=== PATIENT | male | born 1945 | race Caucasian/White ===

== ENCOUNTER 2022-03-05 07:34 | Outpatient (REF) | payer MEDICARE, SELFPAY ==
[2022-03-05 08:01] LABS: MANUAL DIFF FLAG NO
[2022-03-05 08:38] LABS: Basophils Percent Auto 0.6 % (0-2); Eosinophils Absolute Auto 0.1 X10*3/uL (0.0-0.4); Hematocrit 41.7 % (42.0-52.0); Hemoglobin 13.7 g/dl (14.0-18.0); Imm Gran Abs Auto 0.02 X10*3/uL (0.00-0.03); Imm Gran Pct Auto 0.4 % (0.0-0.4); Lymphocytes Absolute Auto 1.1 X10*3/uL (1.2-4.9); Lymphocytes Percent Auto 21.8 % (20-40); Mean Corpuscular HGB Conc 32.9 g/dl (31.0-36.0); Mean Corpuscular Hemoglobin 28.9 pg (27.0-33.0); Mean Platelet Volume 10.3 fL (9.4-12.4); Monocytes Absolute Auto 0.4 X10*3/uL (0.1-1.2); Monocytes Percent Auto 8.2 % (2-11); Neutrophils Absolute Auto 3.5 x10*3/uL (2.0-8.3); Platelet Count 228 X10*3/uL (160-400); Red Blood Count 4.74 X10*6/uL (4.60-5.80); Red Cell Distribution Width 12.8 % (11.0-16.0); White Blood Count 5.1 X10*3/uL (4.8-10.8)
[2022-03-05 09:05] LABS: Estimated Average Glucose 114 mg/dL; Hemoglobin A1c % 5.6 %
[2022-03-05 09:10] LABS: Alanine Aminotransferase 16 U/L (0-40); Albumin Level 4.1 g/dL (3.5-5.0); Alkaline Phosphatase 58 U/L (39-117); Anion Gap 9 (12-20); Aspartate Amino Transferase 20 U/L (5-37); Bilirubin Total 0.4 mg/dL (0.0-1.0); Blood Urea Nitrogen 22 mg/dL (9-16); Calcium 9.2 mg/dL (8.4-10.2); Carbon Dioxide 30 mmol/L (22-29); Chloride 104 mmol/L (96-108); Cholesterol 191 mg/dL; Estimated Glomerular Filt Rate > 60; Glucose Random 104 mg/dL (60-115); HDL Cholesterol 41 mg/dL; LDL Cholesterol Calculated 137 mg/dl; Potassium 4.4 mmol/L (3.3-5.1); Sodium 139 mmol/L (135-145); Total Protein 6.9 g/dL (6.5-8.0); Triglycerides 66 mg/dL
[2022-03-05 09:29] LABS: Free T4 (Free Thyroxine) 1.18 ng/dL (0.71-1.85); Thyroid Stimulating Hormone 0.86 uIU/mL (0.32-4.0)
[2022-03-07 06:35] LABS: Vitamin B12 239 pg/mL (200-900)
== END 2022-03-05 07:35 | disposition home or self-care (01) ==
LOC: HO.LAB 07:34
PROVIDERS: PCP Internal Medicine; Visit Provider Internal Medicine
DX: K21.9 Gastro-esophageal reflux disease without esophagitis (principal); E78.00 Pure hypercholesterolemia, unspecified; R73.02 Impaired glucose tolerance (oral)
CPT/HCPCS: 36415; 80053; 80061; 82607; 82746; 83036; 84439; 84443; 85025

== ENCOUNTER 2023-06-26 08:45 | Outpatient (REF) | payer MEDICARE, SELFPAY ==
[2023-06-26 09:04] LABS: MANUAL DIFF FLAG NO
[2023-06-26 09:46] LABS: Basophils Percent Auto 0.8 % (0-2); Eosinophils Percent Auto 0.8 % (0-4); Hemoglobin 14.7 g/dl (14.0-18.0); Imm Gran Abs Auto 0.01 X10*3/uL (0.00-0.03); Imm Gran Pct Auto 0.2 % (0.0-0.4); Lymphocytes Absolute Auto 1.1 X10*3/uL (1.2-4.9); Lymphocytes Percent Auto 22.3 % (20-40); Mean Corpuscular HGB Conc 33.4 g/dl (31.0-36.0); Mean Corpuscular Volume 86.8 fL (80.0-98.0); Mean Platelet Volume 10.2 fL (9.4-12.4); Monocytes Absolute Auto 0.4 X10*3/uL (0.1-1.2); Monocytes Percent Auto 7.6 % (2-11); Neutrophils Absolute Auto 3.5 x10*3/uL (2.0-8.3); Neutrophils Percent Auto 68.3 % (45-73); Platelet Count 230 X10*3/uL (160-400); Red Blood Count 5.07 X10*6/uL (4.60-5.80); Red Cell Distribution Width 12.4 % (11.0-16.0); White Blood Count 5.1 X10*3/uL (4.8-10.8)
[2023-06-26 09:59] LABS: Estimated Average Glucose 105 mg/dL; Hemoglobin A1c % 5.3 % (<6.0)
[2023-06-26 10:54] LABS: Folate 11.5 ng/mL (> or = 4.0); Vitamin B12 317 pg/mL (200-900)
[2023-06-26 11:44] LABS: Alanine Aminotransferase 12 U/L (0-40); Albumin Level 4.2 g/dL (3.5-5.0); Alkaline Phosphatase 50 U/L (39-117); Anion Gap 11 (12-20); Aspartate Amino Transferase 16 U/L (5-37); Bilirubin Total 0.6 mg/dL (0.0-1.0); Blood Urea Nitrogen 18 mg/dL (9-16); Calcium 9.6 mg/dL (8.4-10.2); Carbon Dioxide 28 mmol/L (22-29); Chloride 105 mmol/L (96-108); Cholesterol 211 mg/dL (<200); Estimated Glomerular Filt Rate > 60; Glucose Random 102 mg/dL (60-115); HDL Cholesterol 41 mg/dL (>40); LDL Cholesterol Calculated 152 mg/dL (<100); Potassium 4.3 mmol/L (3.3-5.1); Sodium 140 mmol/L (135-145); Total Protein 6.9 g/dL (6.5-8.0); Triglycerides 92 mg/dL (<150)
[2023-06-26 12:01] LABS: Free T4 (Free Thyroxine) 1.07 ng/dL (0.71-1.85); Thyroid Stimulating Hormone 0.94 uIU/mL (0.32-4.0)
== END 2023-06-26 08:46 | disposition home or self-care (01) ==
LOC: HO.LAB 08:45
PROVIDERS: PCP Internal Medicine; Visit Provider Internal Medicine
DX: R73.02 Impaired glucose tolerance (oral) (principal); E78.00 Pure hypercholesterolemia, unspecified
CPT/HCPCS: 36415; 80053; 80061; 82607; 82746; 83036; 84439; 84443; 85025

== ENCOUNTER 2023-06-30 10:52 | Outpatient (AMB) | payer MEDICARE, SELFPAY ==
--- NOTE | 2023-06-30 10:54 | A.OFFPC_ITS ---
Vital Signs 06/30/23 10:55 Height 5 ft 10 in Weight 179 lb 2 oz BMI 25.7 BP 142/86 H Blood Pressure Location Lt brachial Position Sitting Respiration 16 Pulse 75 Pulse Source Pulse Oximeter Pulse Oximetry (%) 97 Oxygen Delivery Method Room Air Intake Visit Reasons: BP elevated, IGT, Cholesterol/ear flush Intake Note: Pt is here for elevated BP, IGT, Cholesterol and ear flush. 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 Accompanied by: Self / Same As Patient Allergies No Known Allergies Allergy (Verified 06/30/23 11:02) Tobacco use date assessed: 06/30/23 Fall risk assessment: No Falls in past year Last assessed Fall Risk: 06/30/23 Dental Screening Dental Screen Date: 06/30/23 Did you have a dental visit in the last 12 months?: Yes Did you have a dental problem in the last 6 months where you did not have access to dental care?: No Was dental information given to patient?: Patient has dentist HPI BP elevated, IGT, Cholesterol/ear flush HPI Details 77-year-old male with impaired glucose t olerance hypercholesterolemia GERD coming in for follow-up. Last seen in February for annual well visit noted to have an elevated blood pressure patient is here for follow-up [facility] Medical History (Updated 06/30/23 @ 11:35 by Kentrell Park MD) Blood pressure elevated without history of HTN Vitamin D deficiency Hypercholesterolemia Skin cancer GERD (gastroesophageal reflux disease) Surgical History History of retinal detachment Status post surgical removal of malignant neoplasm of skin History of cataract surgery Family History (Updated 03/10/23 @ 09:12 by MARK Garcia) Father Skin cancer Mother No problems noted. Son No problems noted. Daughter No problems noted. Other Mental health disorder Social History (Updated 03/10/23 @ 09:25 by Kentrell Park MD) Housing: House Alcohol intake: current Alcohol intake frequency: holidays/special occasions only Patient Tobacco Use Status: Former Tobacco user Years Smoked: 1976 quit e-Cigarette/Vaping Use: Never Used Current occupational status: retired Cognitive needs: No Hearing needs: No Vision needs: Yes Questionnaire Thrive Questionnaire Date Thrive assessed: 03/10/23 JAMAL-7 AMB Questionnaire JAMAL-7 Date JAMAL - 7 assessed: 03/10/23 Source: Developed by Drs. Derrick Dutton, Joanie Mcgowan, Kailash Tran and colleagues, with an educational artemio from [employer]. Physical exam (Primary Care) Vital Signs: Last Vital Signs Pulse 75 06/30/23 10:55 Resp 16 06/30/23 10:55 BP 142/86 H 06/30/23 10:55 Pulse Ox 97 06/30/23 10:55 Oxygen Delivery Method Room Air 06/30/23 10:55 BMI result Body Mass Index 25.7 Tobacco/Smoking Status: Tobacco use Status Tobacco use date assessed 06/30/23 06/30/23 11:03 Patient Tobacco Use Status Former Tobacco user 06/30/23 10:54 e-Cigarette/Vaping Use Never Used 06/30/23 11:03 Thrive Assessment: Date of Thrive Assessment Date Thrive assessed 03/10/23 06/30/23 10:54 Const General: alert; No acute distress Eyes Conjunctivae: conjunctivae normal Resp Auscultation: clear to auscultation bilaterally Cardio Rate: regular rate Rhythm: regular rhythm GI Inspection: Yes normal to inspection Extrem General: Yes normal to inspection and No edema Assessment and Plan Assessment & Plan (1) Hypertension: Code(s): I10 - Essential (primary) hypertension Plan: Low-salt diet. decline med for now advised to continue with monitoring (2) Hypercholesterolemia: Code(s): E78.00 - Pure hypercholesterolemia, unspecified Plan: Avoid fried foods, chicken skin, eggs, butter margarine, pastries and meat. Be it pork or beef they have a lot of cholesterol LDL goal of less than 130 and triglyceride of less than 150 decline med for now retest in 6 months (3) GERD (gastroesophageal reflux disease): Code(s): K21.9 - Gastro-esophageal reflux disease without esophagitis Qualifiers: Esophagitis presence: without esophagitis Qualified Code(s): K21.9 - Gastro-esophageal reflux disease without esophagitis Plan: Avoid the foods that causes that usually spicy foods, tomato products, juices, coffee, soda and foods that your sensitive to. After eating do not lie down, allow 3-4 hours before in lie down. And keep the head of bed above 30 degrees to avoid the acid from going up. (4) Impaired glucose tolerance: Code(s): R73.02 - Impaired glucose tolerance (oral) Plan: Decrease the amount of carbohydrate intake, pasta, bread, rice and potatoes are all sugar and that is aside from all the sweet stuff, remember that fruits are good but they are Sweet also. (5) Impacted cerumen of both ears: Code(s): H61.23 - Impacted cerumen, bilateral Plan: not fully blocking - will hold irrigaiton (6) Shoulder pain, left: Code(s): M25.512 - Pain in left shoulder Plan: decline Physical therapy or referral to ortho Orders: Orders Comprehensive Met. Panel 6 Months E78.00 - Pure hypercholesterolemia, unspecified Lipid Panel 6 Months E78.00 - Pure hypercholesterolemia, unspecified Hemoglobin A1c 6 Months R73.02 - Impaired glucose tolerance (oral) Coding Level of Care Code Est Pt Level 4 (13739) Diagnoses Hypertension I10 Hypercholesterolemia E78.00 Gastroesophageal reflux disease without esophagitis K21.9 Esophagitis presence: without esophagitis Impaired glucose tolerance R73.02 Impacted cerumen of both ears H61.23 Shoulder pain, left M25.512
[2023-06-30 10:55] VITALS: BP 142/86; PULSE 75; RESP 16; O2SAT 97; BMI 25.7
== END 2023-06-30 11:43 | disposition home or self-care (01) ==
PROVIDERS: Visit Provider Internal Medicine
DX: I10 Essential (primary) hypertension (principal); E78.00 Pure hypercholesterolemia, unspecified; K21.9 Gastro-esophageal reflux disease without esophagitis; R73.02 Impaired glucose tolerance (oral); H61.23 Impacted cerumen, bilateral; M25.512 Pain in left shoulder
CPT/HCPCS: 99214

== ENCOUNTER 2024-01-01 08:12 | Outpatient (REF) | payer MEDICARE, SELFPAY ==
[2024-01-01 08:39] LABS: Estimated Average Glucose 105 mg/dL; Hemoglobin A1c % 5.3 % (<6.0)
[2024-01-01 09:02] LABS: Alanine Aminotransferase 12 U/L (0-40); Albumin Level 3.9 g/dL (3.5-5.0); Alkaline Phosphatase 53 U/L (39-117); Anion Gap 11 (12-20); Aspartate Amino Transferase 17 U/L (5-37); Bilirubin Total 0.5 mg/dL (0.0-1.0); Blood Urea Nitrogen 18 mg/dL (9-16); Calcium 9.3 mg/dL (8.4-10.2); Carbon Dioxide 28 mmol/L (22-29); Chloride 107 mmol/L (96-108); Cholesterol 173 mg/dL (<200); Estimated Glomerular Filt Rate > 60; Glucose Random 99 mg/dL (60-115); HDL Cholesterol 34 mg/dL (>40); LDL Cholesterol Calculated 123 mg/dL (<100); Potassium 4.3 mmol/L (3.3-5.1); Sodium 142 mmol/L (135-145); Total Protein 6.8 g/dL (6.5-8.0); Triglycerides 80 mg/dL (<150)
== END 2024-01-01 08:13 | disposition home or self-care (01) ==
LOC: HO.LAB 08:12
PROVIDERS: PCP Internal Medicine; Visit Provider Internal Medicine
DX: E78.00 Pure hypercholesterolemia, unspecified (principal); R73.02 Impaired glucose tolerance (oral)
CPT/HCPCS: 36415; 80053; 80061; 83036

== ENCOUNTER 2024-01-02 09:46 | Outpatient (AMB) | payer MEDICARE, SELFPAY ==
[2024-01-02 09:47] VITALS: BP 136/68; PULSE 66; O2SAT 99; BMI 25.1
--- NOTE | 2024-01-02 09:47 | A.OFFPC_ITS ---
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 Allergies No Known Allergies Allergy (Verified 01/02/24 09:47) Medication List - Last Reconciled 01/02/24 by Kentrell Park MD clotrimazole 1% 1 appl topical BID 4 weeks miconazole nitrate 2% (Zeasorb AF) 1 appl topical BID omeprazole 20 mg PO DAILY sildenafil 50 mg PO DAILY PRN Tobacco use date assessed: 01/02/24 Fall risk assessment: No Falls in past year Last assessed Fall Risk: 01/02/24 Dental Screening Dental Screen Date: 01/02/24 HPI L shoulder pain , HTN , Cholesterol HPI Details [age] year old male with hypertension hypercholesterolemia GERD impaired glucose tolerance and left shoulder pain last seen in June 2023 referred to orthopedics. Patient's colonoscopy is due this year. [facility] Medical History (Updated 01/02/24 @ 10:13 by Kentrell Park MD) Blood pressure elevated without history of HTN Vitamin D deficiency Hypercholesterolemia Skin cancer GERD (gastroesophageal reflux disease) Surgical History History of retinal detachment Status post surgical removal of malignant neoplasm of skin History of cataract surgery Family History (Updated 03/10/23 @ 09:12 by MARK Garcia) Father Skin cancer Mother No problems noted. Son No problems noted. Daughter No problems noted. Other Mental health disorder Social History (Updated 03/10/23 @ 09:25 by Kentrell Park MD) Housing: House Alcohol intake: current Alcohol intake frequency: holidays/special occasions only Patient Tobacco Use Status: Former Tobacco user Years Smoked: 1977 quit e-Cigarette/Vaping Use: Never Used Current occupational status: retired Cognitive needs: No Hearing needs: No Vision needs: Yes Questionnaire Thrive Questionnaire Date Thrive assessed: 01/02/24 I am a: Patient What is your living situation today?: I have a steady place to live Within the past 12 months, did the food you bought not last and you didn't have the money to get more?: Never true Within the past 12 months, did you worry whether your food would run out before you got money to buy more?: Never true Do you have trouble paying for medicines?: No Do you have trouble getting transportation to medical appointments?: No Do you have trouble paying your heating and electricity bill?: No Do you have trouble taking care of your child, family member or friend?: No Do you have trouble with day-to-day activities such as bathing, preparing meals, shopping, managing finances, etc.?: No Are you currently unemployed and looking for a job?: No Are you interested in more education?: No Please select the resources that you would like help with: None THRIVE Score: 0 AUDIT C Alcohol Use Questionnaire (AUDIT-C) 1. How often do you have a drink containing alcohol?: Never Total Score: 0 JAMAL-7 AMB Questionnaire JAMAL-7 Date JAMAL - 7 assessed: 01/02/24 Source: Developed by Drs. Derrick Dutton, Joanie Mcgowan, Kailash Tran and colleagues, with an educational artemio from [employer]. Physical exam (Primary Care) Vital Signs: Last Vital Signs Pulse 66 01/02/24 09:47 BP 136/68 01/02/24 09:47 Pulse Ox 99 01/02/24 09:47 Oxygen Delivery Method Room Air 01/02/24 09:47 BMI result Body Mass Index 25.1 Tobacco/Smoking Status: Tobacco use Status Tobacco use date assessed 01/02/24 01/02/24 09:49 Patient Tobacco Use Status Former Tobacco user 01/02/24 09:49 e-Cigarette/Vaping Use Never Used 01/02/24 09:49 Thrive Assessment: Date of Thrive Assessment Date Thrive assessed 01/02/24 01/02/24 09:49 Const General: alert; No acute distress Eyes Conjunctivae: conjunctivae normal Resp Auscultation: clear to auscultation bilaterally Cardio Rate: regular rate Rhythm: regular rhythm GI Inspection: Yes normal to inspection Extrem General: Yes normal to inspection and No edema Immunizations tetanus-diphtheria toxoids-Td 2 Lf unit-2 Lf unit/0.5 mL IM suspension Performing Provider: Kentrell Park MD Performing Location: [facility] Administered by: MARK Panchal on 01/02/24 10:20 Dose Route Admin Location Dispensed Lot Number Expiration Date NDC [employer] 0.5 mL IM Left Deltoid 0.5 mL [id number] 11/25/24 [id number] [employer] VIS Given Date VIS Provided VIS Publication Date 01/02/24 Single Vaccine 21 Eligibility Eligibility Date Funding Source Not [facility] Eligible 01/02/24 State funds Assessment and Plan Assessment & Plan (1) GERD (gastroesophageal reflux disease): Code(s): K21.9 - Gastro-esophageal reflux disease without esophagitis Qualifiers: Esophagitis presence: without esophagitis Qualified Code(s): K21.9 - Gastro-esophageal reflux disease without esophagitis Plan: Avoid the foods that causes that usually spicy foods, tomato products, juices, coffee, soda and foods that your sensitive to. After eating do not lie down, allow 3-4 hours before in lie down. And keep the head of bed above 30 degrees to avoid the acid from going up. (2) Hypercholesterolemia: Code(s): E78.00 - Pure hypercholesterolemia, unspecified Plan: Avoid fried foods, chicken skin, eggs, butter margarine, pastries and meat. Be it pork or beef they have a lot of cholesterol LDL goal of less than 130 and triglyceride of less than 150. (3) Impaired glucose tolerance: Code(s): R73.02 - Impaired glucose tolerance (oral) Plan: Decrease the amount of carbohydrate intake, pasta, bread, rice and potatoes are all sugar and that is aside from all the sweet stuff, remember that fruits are good but they are Sweet also. (4) Hypertension: Code(s): I10 - Essential (primary) hypertension Plan: Blood pressure is controlled without any medication (5) Colon cancer screening: Code(s): Z12.11 - Encounter for screening for malignant neoplasm of colon Plan: Reminded about colonoscopy. But declined for now Orders: Orders Td State Immunization Today Z23 - Encounter for immunization Coding Level of Care Code Est Pt Level 4 (24466) Diagnoses Gastroesophageal reflux disease without esophagitis K21.9 Esophagitis presence: without esophagitis Hypercholesterolemia E78.00 Impaired glucose tolerance R73.02 Hypertension I10 Colon cancer screening Z12.11
== END 2024-01-02 10:37 | disposition home or self-care (01) ==
PROVIDERS: PCP Internal Medicine; Visit Provider Internal Medicine
DX: K21.9 Gastro-esophageal reflux disease without esophagitis (principal); E78.00 Pure hypercholesterolemia, unspecified; R73.02 Impaired glucose tolerance (oral); I10 Essential (primary) hypertension; Z12.11 Encounter for screening for malignant neoplasm of colon; Z23 Encounter for immunization
CPT/HCPCS: 90471; 90714; 99214

== ENCOUNTER 2024-03-29 13:11 | Outpatient (AMB) | payer MEDICARE, SELFPAY ==
[2024-03-29 13:13] VITALS: BP 138/60; PULSE 65; O2SAT 98; BMI 24.4
--- NOTE | 2024-03-29 13:13 | MHC.PC.OV ---
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 Patient is due for colonoscopy. R shoulder pain 1 week- took NSAID, has been shop vac. on the floor [facility] Medical History (Updated 03/29/24 @ 13:44 by Kentrell Park MD) Blood pressure elevated without history of HTN Vitamin D deficiency Hypercholesterolemia Skin cancer GERD (gastroesophageal reflux disease) Surgical History History of retinal detachment Status post surgical removal of malignant neoplasm of skin History of cataract surgery Family History (Updated 03/10/23 @ 09:12 by MRAK Garcia) Father Skin cancer Mother No problems noted. Son No problems noted. Daughter No problems noted. Other Mental health disorder Social History (Updated 03/10/23 @ 09:25 by Kentrell Park MD) Housing: House Alcohol intake: current Alcohol intake frequency: holidays/special occasions only Patient Tobacco Use Status: Former Tobacco user Years Smoked: 1976 quit e-Cigarette/Vaping Use: Never Used Current occupational status: retired Cognitive needs: No Hearing needs: No Vision needs: Yes Questionnaire Thrive Questionnaire Date Thrive assessed: 01/02/24 I am a: Patient What is your living situation today?: I have a steady place to live Within the past 12 months, did the food you bought not last and you didn't have the money to get more?: Never true Within the past 12 months, did you worry whether your food would run out before you got money to buy more?: Never true Do you have trouble paying for medicines?: No Do you have trouble getting transportation to medical appointments?: No Do you have trouble paying your heating and electricity bill?: No Do you have trouble taking care of your child, family member or friend?: No Do you have trouble with day-to-day activities such as bathing, preparing meals, shopping, managing finances, etc.?: No Are you currently unemployed and looking for a job?: No Are you interested in more education?: No Please select the resources that you would like help with: None THRIVE Score: 0 AUDIT C Alcohol Use Questionnaire (AUDIT-C) 1. How often do you have a drink containing alcohol?: Never 2. How many drinks containing alcohol do you have on a typical day when you are drinking?: 1 or 2 (0) 3. How often do you have six or more drinks on one occasion?: Never Total Score: 0 JAMAL-7 AMB Questionnaire JAMAL-7 Date JAMAL - 7 assessed: 01/02/24 Source: Developed by Drs. Derrick Dutton, Joanie Mcgowan, Kailash Tran and colleagues, with an educational artemio from [employer]. Physical exam (Primary Care) Vital Signs: Last Vital Signs Pulse 65 03/29/24 13:13 BP 138/60 03/29/24 13:13 Pulse Ox 98 03/29/24 13:13 Oxygen Delivery Method Room Air 03/29/24 13:13 BMI result Body Mass Index 24.4 Tobacco/Smoking Status: Tobacco use Status Tobacco use date assessed 03/29/24 03/29/24 13:14 Patient Tobacco Use Status Former Tobacco user 03/29/24 13:14 e-Cigarette/Vaping Use Never Used 03/29/24 13:14 Thrive Assessment: Date of Thrive Assessment Date Thrive assessed 01/02/24 03/29/24 13:14 Const General: alert; No acute distress Eyes Conjunctivae: conjunctivae normal Resp Auscultation: clear to auscultation bilaterally Cardio Rate: regular rate Rhythm: regular rhythm GI Inspection: Yes normal to inspection Skin Other: Right arm no swelling no redness limitation of elevation up to 110 degrees with mild tenderness on the bicipital muscle Extrem General: Yes normal to inspection and No edema Assessment and Plan Assessment & Plan (1) Colon cancer screening: Code(s): Z12.11 - Encounter for screening for malignant neoplasm of colon Plan: reminded about colontest but patient not ready (2) Right shoulder pain: Code(s): M25.511 - Pain in right shoulder Plan: Discussed about having physical therapy and heat for this problem. Orders: Orders PT Evaluation and Treatment Today M25.511 - Pain in right shoulder Coding Level of Care Code Est Pt Level 3 (97765) Diagnoses Colon cancer screening Z12.11 Right shoulder pain M25.511
== END 2024-03-29 13:49 | disposition home or self-care (01) ==
PROVIDERS: PCP Internal Medicine; Visit Provider Internal Medicine
DX: Z12.11 Encounter for screening for malignant neoplasm of colon (principal); M25.511 Pain in right shoulder
CPT/HCPCS: 99213

== ENCOUNTER 2024-05-17 10:00 | Outpatient (RCR) | payer MEDICARE, SELFPAY ==
--- NOTE | 2024-04-26 12:25 | MHC.PT.EP ---
[facility] [place] Office [place] Office [place] Office [address] Letty Marcano [address] [phone] F: [phone] F: [phone] F: [phone] F: [phone] Physical Therapy Plan of Care Date of Evaluation: 04/26/24 Date of Surgery: Diagnosis: RIGHT shoulder pain (MD Dx) RIGHT upper trapezius strain, mild ACJ involvement (PT Dx) Assessment: Patient is a pleasant 78 y.o. male who is referred to PT by Dr. Kentrell Park MD with Dx of RIGHT shoulder pain. PT diagnosis is RIGHT upper trapezius strain, mild ACJ involvement. He presents with poor posture contributing to symptoms. Overall his symptoms are resolving, but would benefit from strengthening. Patient impairments include pain, postural imbalances, weakness in shoulder girdle. Patient current functional limitations are sleeping, reaching overhead, behind back, wash hair. Patient will benefit from skilled PT to address aforementioned impairments and functional limitations to meet established goals. Frequency and Duration: The patient will be seen 1x/week for 4 weeks Short Term Goals: 2 weeks Patient demonstrates consistency and independence with HEP to self manage symptoms. Residential Goals: 4 weeks Patient presents with increased RIGHT shoulder abduction strength 5/5 to be able to reach to high shelf without sxs. Patient presents with increased RIGHT shoulder flexion 5/5 to be able to sleep without discomfort. Treatment Plan: Modalities to reduce pain, spasms and effusion. Manual therapy to restore motion and function. Therapeutic exercise to improve strength and flexibility. Neuromuscular re-education for posture and balance. Therapeutic activities to return to functional activities of daily living. Electronically signed by: Cleo Rodriguez, PT, DPT Please sign and return to therapist. Thank you for your referral.
--- NOTE | 2024-07-10 11:54 | MHC.PT.DC ---
[facility] [place] Office [place] Office [place] Office [address] Letty Marcano [address] [phone] F: [phone] F: [phone] F: [phone] F: [phone] Physical Therapy Discharge Report Diagnosis: RIGHT shoulder pain (MD Dx) RIGHT upper trapezius strain, mild ACJ involvement (PT Dx) Date of Surgery: Date of Evaluation: 04/26/24 Date of Discharge: 07/10/24 Treatments to Date: 2 Cancellations to Date: 1 No Shows to Date: 0 Discharge Status: Improved Function Independent with HEP Discharge Summary: Kevin was last seen in PT on 05/17/24 and the assessment reads, Kevin presents with poor seated shoulder girdle and cervical spine posture, forward head/neck and rounded shoulders. Re-educated on working on posture and utilizing exercises to reduce impingement symptoms in his shoulder. He needs cues and demonstration to recall a couple exercises with proper form and to perform with control. He reports no pain to end session. He ceased attending PT on his own accord and is therefore discharged from PT. Electronically signed by: Cleo Rodriguez, PT, DPT Please sign and return to therapist. Thank you for your referral.
== END 2024-07-10 11:55 | disposition home or self-care (01) ==
LOC: HO.PT 10:00
PROVIDERS: PCP Internal Medicine; Visit Provider Internal Medicine
DX: M25.511 Pain in right shoulder (principal)
CPT/HCPCS: 97110; 97140; 97161

== ENCOUNTER 2024-07-04 11:17 | Outpatient (AMB) | payer MEDICARE, SELFPAY ==
[2024-07-04 11:18] VITALS: BP 138/62; PULSE 68; O2SAT 97; BMI 25.1
--- NOTE | 2024-07-04 11:19 | AM.OFFVISMDC ---
Intake Vital Signs 07/04/24 11:18 Height 5 ft 10 in Weight 175 lb BMI 25.1 BP 138/62 Blood Pressure Location Lt brachial Position Sitting Pulse 68 Pulse Source Pulse Oximeter Pulse Oximetry (%) 97 Oxygen Delivery Method Room Air Intake Visit Reasons: RD [id number] Allergies No Known Allergies Allergy (Verified 07/04/24 11:18) Medication List - Last Reconciled 07/04/24 by Kentrell Park MD clotrimazole 1% 1 appl topical BID 4 weeks omeprazole 20 mg PO DAILY sildenafil 50 mg PO DAILY PRN HPI SWV [id number] HPI Details 78-year-old male with GERD, hypercholesterolemia impaired glucose tolerance hypertension coming in for annual well visit last seen in March 2024. Patient had right shoulder pain and was having physical therapy for this. decline pneumovax [facility] Medical History (Updated 07/04/24 @ 18:44 by Kentrell Park MD) Blood pressure elevated without history of HTN Vitamin D deficiency Hypercholesterolemia Skin cancer GERD (gastroesophageal reflux disease) Surgical History History of retinal detachment Status post surgical removal of malignant neoplasm of skin History of cataract surgery Family History (Updated 03/10/23 @ 09:12 by MARK Garcia) Father Skin cancer Mother No problems noted. Son No problems noted. Daughter No problems noted. Other Mental health disorder Social History (Updated 07/04/24 @ 11:50 by Kentrell Park MD) Housing: House Alcohol intake: current Alcohol intake frequency: holidays/special occasions only Comment: once Q 2 month 4 drinks Patient Tobacco Use Status: Former Tobacco user Years Smoked: 1977 quit e-Cigarette/Vaping Use: Never Used Current occupational status: retired Cognitive needs: No Hearing needs: No Vision needs: Yes Questionnaire Medicare Wellness Checkup [age] What gender do you identify with?: male During the past 4 weeks, how much have you been bothered by emotional problems such as feeling anxious, depressed, irritable, sad or downhearted, and blue?: not at all During the past 4 weeks, has your physical & emotional health limited your social activities with family, friends, neighbors, or groups?: not at all During the past 4 weeks, how much bodily pain have you generally had?: mild pain During the past 4 weeks, was someone available to help you if you needed & wanted help?: yes, as much as I wanted During the past 4 weeks, what was the hardest physical activity you could do for at least 2 minutes?: moderate Can you get to places out of walking distance without help? (For eg., can you travel alone on buses, taxis or drive your car?): Yes Can you go shopping for groceries or clothes without someone's help?: Yes Can you prepare your own meals?: Yes Can you do your housework without help?: Yes Because of any health problems, do you need the help of another person with your personal care needs such as eating, bathing, dressing or getting around the house?: No Can you handle your own money without help?: Yes During the past 4 weeks, how would you rate your health in general?: very good During the past 4 weeks how have things been going for you?: very well; could hardly better Are you having difficulties driving your car?: sometimes Do you always fasten your seat belt when you are in a car?: yes, usually During past 4 weeks, have you been bothered by the following: never: Falling or dizzy when standing up, Sexual problems?, Trouble eating well?, Teeth or denture problems?, Problems using the telephone? and Tiredness or fatigue? Have you fallen 2 or more times in the past year?: No Are you afraid of falling?: No Are you a smoker?: no During the past 4 weeks, how many drinks of wine, beer, or other alcoholic beverages did you have?: no alcohol at all Do you exercise for about 20 minutes 3 or more times a week?: yes, all the time Have you been given information to help with the following?: no: Hazards in your house that might hurt you? and no: Keeping track of your medications? How often do you have trouble taking medicines the way you have been told to take them?: I do not have to take medicine What is your race?: White PHQ-9 Over the last 2 weeks, how often have you been bothered by any of the following problems? 1. Little interest or pleasure in doing things: not at all 2. Feeling down, depressed, or hopeless: not at all 3. Trouble falling or staying asleep, or sleeping too much: several days 4. Feeling tired or having little energy: not at all 5. Poor appetite or overeating: not at all 6. Feeling bad about yourself - or that you are a failure or have let yourself or your family down: not at all 7. Trouble concentrating on things, such as reading the newspaper or watching television: not at all 8. Moving or speaking so slowly that other people could have noticed. Or the opposite - being so fidgety or restless that you have been moving around a lot more than usual: not at all 9. Thoughts that you would be better off or of hurting yourself in some way: not at all Total score: 1 Depression Screening Interpretation: Positive Depression Screening Done: Yes 34003 - PHQ-9 Billing: Yes Source: Developed by Drs. Derrick Dutton, Joanie Mcgoawn, Kailash Tran and colleagues, with an educational artemio from [employer]. Thrive Questionnaire Date Thrive assessed: 07/04/24 I am a: Patient What is your living situation today?: I have a steady place to live Within the past 12 months, did the food you bought not last and you didn't have the money to get more?: Never true Within the past 12 months, did you worry whether your food would run out before you got money to buy more?: Never true Do you have trouble paying for medicines?: No Do you have trouble getting transportation to medical appointments?: No Do you have trouble paying your heating and electricity bill?: No Do you have trouble taking care of your child, family member or friend?: No Do you have trouble with day-to-day activities such as bathing, preparing meals, shopping, managing finances, etc.?: No Are you currently unemployed and looking for a job?: No Are you interested in more education?: No Please select the resources that you would like help with: None Currently or been in a relationship where the following occur: No concerns reported THRIVE Score: 0 JAMAL-7 AMB Questionnaire JAMAL-7 Date JAMAL - 7 assessed: 07/04/24 Feeling nervous, anxious, or on edge: 0 = Not at all Not being able to stop or control worryin = Not at all Worrying too much about different things: 0 = Not at all Trouble relaxin = Not at all Being so restless that it is hard to sit still: 0 = Not at all Becoming easily annoyed or irritable: 0 = Not at all Feeling afraid as if something awful might happen: 0 = Not at all Total JAMAL-7 score (0-4 normal; 5-9 mild; 10-14 moderate; 15-21 severe): 0 Source: Developed by Drs. Derrick Dutton, Joanie Mcgowan, Kailash Tran and colleagues, with an educational artemio from [employer]. Review of Systems Const Denies poor appetite and Denies weakness Eyes Denies no additional complaints ENT Reports Normal hearing present, Denies dizziness, Denies nasal congestion, Denies tinnitus and Denies sore throat Card Denies chest pain, Denies syncope, Denies rapid heart rate and Denies dyspnea Resp Denies cough and Denies dyspnea GI Denies change in stool character, Reports constipation, Denies diarrhea, Denies nausea and Denies vomiting Denies dysuria and Denies urinary frequency Neuro Reports Normal hearing present, Denies confusion, Denies dizziness, Denies syncope and Denies weakness Psych Denies confusion Physical Exam Vital Signs: Last Vital Signs Pulse 68 07/04/24 11:18 BP 138/62 07/04/24 11:18 Pulse Ox 97 07/04/24 11:18 Oxygen Delivery Method Room Air 07/04/24 11:18 BMI result Body Mass Index 25.1 Const General: No confusion Orientation/consciousness: No confusion HEENT Head: Yes normocephalic Ears: external ears normal and TM's normal bilaterally Face and sinus: Yes normal facial exam Mouth: moist mucous membranes Throat: Yes tonsils normal Eyes Conjunctivae: conjunctivae normal Pupils: Equal, round and reactive pupils present and Pupil accommodation reflex normal Direct Ophthalmoscopy: normal light reflex Neck Neck: No lymphadenopathy Thyroid: Thyroid normal Chest Chest palpation & inspection: normal inspection of the chest Resp Effort & Inspection: normal respiratory effort and no audible wheezes Auscultation: clear to auscultation bilaterally, no crackles, no wheezes and lung sounds not diminished Cardio Rate: regular rate Rhythm: regular rhythm Peripheral pulses: radial pulses present and dorsalis pedis present GI Palpation (GI): no masses Auscultation: normal bowel sounds and normoactive bowel sounds Rectal Exam - Male: Yes deferred Skin General skin exam: no rashes or lesions noted Rashes: no rashes Neuro General: No confusion Cranial nerves: Yes Equal, round and reactive pupils present and Yes Normal hearing present Cognition (Neuro): normal cognition Gait exam (Neuro): Normal gait present Motor exam (neuro): 5/5 motor strength present throughout Deep tendon reflexes (DTR's): Right brachioradialis reflex intensity grade: 2+, Left brachioradialis reflex intensity grade: 2+, Right patellar reflex intensity grade: 2+ and Left patellar reflex intensity grade: 2+ Extrem General: No edema Assessment & Plan Assessment & Plan (1) Encounter for subsequent annual wellness visit (AWV) in Medicare patient: Code(s): Z00.00 - Encounter for general adult medical examination without abnormal findings Plan: Patient is advised to eat healthy, keep well hydrated, keep active and have adequate sleep. (2) Hypercholesterolemia: Code(s): E78.00 - Pure hypercholesterolemia, unspecified Plan: Avoid fried foods, chicken skin, eggs, butter margarine, pastries and meat. Be it pork or beef they have a lot of cholesterol LDL goal of less than 130 and triglyceride of less than 150. 01/03/2024 last blood work within normal limits. (3) Impaired glucose tolerance: Code(s): R73.02 - Impaired glucose tolerance (oral) Plan: Decrease the amount of carbohydrate intake, pasta, bread, rice and potatoes are all sugar and that is aside from all the sweet stuff, remember that fruits are good but they are Sweet also. (4) GERD (gastroesophageal reflux disease): Code(s): K21.9 - Gastro-esophageal reflux disease without esophagitis Qualifiers: Esophagitis presence: without esophagitis Qualified Code(s): K21.9 - Gastro-esophageal reflux disease without esophagitis Plan: Avoid the foods that causes that usually spicy foods, tomato products, juices, coffee, soda and foods that your sensitive to. After eating do not lie down, allow 3-4 hours before in lie down. And keep the head of bed above 30 degrees to avoid the acid from going up. (5) Hypertension: Code(s): I10 - Essential (primary) hypertension Qualifiers: Hypertension type: primary hypertension Qualified Code(s): I10 - Essential (primary) hypertension Plan: Patient's blood pressure has been normal (6) Colon cancer screening: Code(s): Z12.11 - Encounter for screening for malignant neoplasm of colon Plan: Patient is reminded about colonoscopy Orders: Referrals Gastroenterology Referral Z12.11 - Encounter for screening for malignant neoplasm of colon Quality Reporting (2019) Depression/Bipolar (159/160/161/177) PHQ-9: Total score: 1 Coding Level of Care Code Medicare Subsequent (G0439) Diagnoses Encounter for subsequent annual wellness visit (AWV) in Medicare patient Z00.00 Hypercholesterolemia E78.00 Impaired glucose tolerance R73.02 Gastroesophageal reflux disease without esophagitis K21.9 Esophagitis presence: without esophagitis Primary hypertension I10 Hypertension type: primary hypertension Colon cancer screening Z12.11
== END 2024-07-04 12:05 | disposition home or self-care (01) ==
PROVIDERS: PCP Internal Medicine; Visit Provider Internal Medicine
DX: Z00.00 Encounter for general adult medical examination without abnormal findings (principal); E78.00 Pure hypercholesterolemia, unspecified; R73.02 Impaired glucose tolerance (oral); K21.9 Gastro-esophageal reflux disease without esophagitis; I10 Essential (primary) hypertension; Z12.11 Encounter for screening for malignant neoplasm of colon

== ENCOUNTER → 2024-07-04 11:17 | Outpatient (BNVA) | payer MEDICARE, SELFPAY | PROVIDERS: PCP Internal Medicine; Visit Provider Internal Medicine ==

== ENCOUNTER 2024-11-16 06:33 | Inpatient (IN) | payer OTHER, SELFPAY ==
[2024-11-16] VITALS (13 sets, daily range): BP systolic 101–173; BP diastolic 54–84; PULSE 74–102; RESP 15–19; TEMP 36.6–37.2; O2SAT 85–97; BMI 24.5; BMI 25.2
--- NOTE | 2024-11-16 | ECG_ITS ---
Test Reason : SYNCOPE Blood Pressure : */* mmHG Vent. Rate : 96 BPM Atrial Rate : 96 BPM P-R Int : 156 ms QRS Dur : 78 ms QT Int : 318 ms P-R-T Axes : 30 1 90 degrees QTcB Int : 401 ms Normal sinus rhythm Nonspecific T wave abnormality Abnormal ECG When compared with ECG of 29-May-2015 21:47, Nonspecific ST and T wave abnormality present Referred By: Generic ED Physician Electronically Signed By: ALL SÁNCHEZ
--- NOTE | ~2024-11-16 | CT_ITS ---
CLINICAL HISTORY: syncope CT angiography chest with contrast. 3D Postprocessing. Comparison: None Findings: The heart is normal size. RV/LV ratio is normal. Unremarkable thoracic aorta and great vessels. No aneurysm. No acute pulmonary embolus. The visualized thyroid and mediastinum are unremarkable. The lungs are clear. There is a 3.7 cm right renal cyst. There is a small cyst in the upper pole of the left kidney. No acute fractures. IMPRESSION: 1. No pulmonary emboli. This document has been electronically signed by: Aj Finn MD on 11/16/2024 12:58:47
--- NOTE | ~2024-11-16 | XR_ITS ---
CLINICAL HISTORY: congestion cough 1 view chest x-ray Comparison: CR - CHEST 2 VIEWS [id number] - 09/27/17 14:00 EST Findings: No consolidation or effusion. Heart size is normal. No acute fracture. IMPRESSION: 1. No acute findings. This document has been electronically signed by: Yahaira Tejeda MD on 11/16/2024 07:11:20
[2024-11-16 07:11] LABS: MANUAL DIFF FLAG NO
[2024-11-16 07:16] LABS: Basophils Percent Auto 0.3 % (0-2); Hematocrit 39.4 % (42.0-52.0); Hemoglobin 13.4 g/dl (14.0-18.0); Imm Gran Abs Auto 0.05 X10*3/uL (0.00-0.03); Imm Gran Pct Auto 0.5 % (0.0-0.4); Lymphocytes Absolute Auto 0.4 X10*3/uL (1.2-4.9); Lymphocytes Percent Auto 3.4 % (20-40); Mean Corpuscular Hemoglobin 29.1 pg (27.0-33.0); Mean Corpuscular Volume 85.5 fL (80.0-98.0); Mean Platelet Volume 9.9 fL (9.4-12.4); Monocytes Absolute Auto 0.7 X10*3/uL (0.1-1.2); Monocytes Percent Auto 6.9 % (2-11); Neutrophils Absolute Auto 9.4 x10*3/uL (2.0-8.3); Neutrophils Percent Auto 88.9 % (45-73); Platelet Count 160 X10*3/uL (160-400); Red Blood Count 4.61 X10*6/uL (4.60-5.80); Red Cell Distribution Width 12.7 % (11.0-16.0); White Blood Count 10.5 X10*3/uL (4.8-10.8)
--- NOTE | 2024-11-16 07:19 | ED.SYNCOPE ---
HPI - Syncope General Chief Complaint: Syncope Stated Complaint: SYNCOPE Time Seen by Provider: 11/16/24 07:11 Source: patient and EMS Mode of arrival: EMS Limitations: no limitations History of Present Illness ED Provider: DR. Garcia HPI narrative: A 78-year-old male history of HTN, HLD came in by ambulance for evaluation after had a syncopal episode this morning before arrival. Patient lives home with his and other family members for the last 2 days patient been having upper respiratory symptoms with coughing, generalized body ache, runny nose and congestion patient was exposed to to a sick family member with flu-like symptoms, patient got of to use the bathroom on his way back he passed out witnessed by for few seconds, no witnessed seizure activity, questionable head injury with no LOC patient not taking anticoagulation, complaints of a slight headache, no neck pain, no CP. only complaining of coughing and shortness of breath currently. Related Data Home Medications ?Medication ?Instructions ?Recorded ?Confirmed omeprazole 20 mg capsule,delayed 20 mg PO DAILY 03/08/21 07/04/24 release Previous Rx's ?Medication ?Instructions ?Recorded clotrimazole 1 % topical cream 1 appl topical BID 4 weeks #45 04/27/23 grams sildenafil 50 mg tablet 50 mg PO DAILY PRN sexual activity 10/03/23 #10 tabs Allergies Allergy/AdvReac Type Severity Reaction Status Date / Time No Known Allergies Allergy Verified 11/16/24 06:46 Review of Systems Review of Systems: All other systems are reviewed and are negative Constitutional: Reports as per HPI and Reports no additional constitutional complaints Eyes: Reports as per HPI and Reports no additional eye complaints Reports system reviewed and no additional complaints, except as documented Cardiovascular: Reports as per HPI and Reports no additional cardiovascular complaints Respiratory: Reports as per HPI and Reports no additional respiratory complaints Gastrointestinal: Reports as per HPI and Reports no additional gastrointestinal complaints Genitourinary: Reports no additional female genitourinary complaints Musculoskeletal: Reports no additional musculoskeletal complaints Skin/Breast: Reports system reviewed and no additional complaints, except as docu Psychiatric: Reports no additional psychiatric complaints Endocrine: Reports no additional endocrine complaints Hematologic/Lymphatic: Reports no additional hematologic/lymphatic complaints Allergic/Immunologic: Reports no additional allergic/immunologic complaints Reports system reviewed and no additional complaints, except as documented and Reports Abnormal speech present [facility] Past Medical History Medical History Blood pressure elevated without history of HTN Vitamin D deficiency Hypercholesterolemia Skin cancer GERD (gastroesophageal reflux disease) Surgical History History of retinal detachment Status post surgical removal of malignant neoplasm of skin History of cataract surgery Family History Family History Father Skin cancer Mother No problems noted. Son No problems noted. Daughter No problems noted. Other Mental health disorder Social History Social History Housing: House Alcohol intake: current Alcohol intake frequency: holidays/special occasions only Comment: once Q 2 month 4 drinks Patient Tobacco Use Status: Former Tobacco user Years Smoked: 1976 quit e-Cigarette/Vaping Use: Never Used Advance Directives: Yes Advance Directives Information Provided: Yes Advance Directives on File: No Do you have a plan to hurt others: No Plan Current occupational status: retired Cognitive needs: No Hearing needs: No Vision needs: Yes Physical Exam Vital Signs: Vital Signs: Last Vital Signs Temp 97.8 F 11/16/24 10:12 Pulse 79 11/16/24 10:12 Resp 16 11/16/24 10:12 BP 122/78 11/16/24 10:12 Pulse Ox 95 11/16/24 10:12 O2 Del Method Nasal Cannula 11/16/24 10:12 O2 Flow Rate 2 11/16/24 10:12 BMI result Body Mass Index 24.5 Vital signs have been reviewed and appear to be correct. Blood pressure elevated. Heart rate normal. Respiratory rate normal. Temperature normal. Oxygen saturation normal. Appearance: Alert. Oriented X3. No acute distress. Head: Normal external exam. Normocephalic. Atraumatic. No [place] signs noted. No raccoon eyes noted Eyes: PERRLA. EOMI. Conjunctiva and sclera normal. Eyelids normal. ENT: TM's Normal. Pharynx normal. Uvula midline. Moist mucous membranes. No trismus noted. No drooling noted. No muffled voice noted. Neck: Normal inspection. Neck supple. FROM. No adenopathy. Thyroid Normal. No meningeal signs. No neck mass noted. CVS: Normal heart rate and rhythm. Heart sound normal. No murmurs noted. Pulses normal throughout. Respiratory: No respiratory distress. Painless inspiration. Breath sounds normal. No wheezes/rales/rhonchi noted. Chest nontender. No accessory muscle usage noted or decreased air movement noted. Abdomen: Soft and nontender. Bowel sounds normal in all 4 quadrants. No distention noted. No organomegaly noted. No visible injury noted. Back: No CVA tenderness. Full range of motion noted. Skin: Skin warm and dry. Normal skin color. Normal skin turgor. No rashes/lesions/lacerations noted. Extremities: No lower extremity edema. Extremities exhibit normal range of motion. Extremities nontender. Neuro: Mental status: Normal attention, orientation, memory, and affect. Cranial nerves: Pupils are equal, round and reactive to light, EOMI, visual arzola are fall, face is symmetric, facial sensations are normal. Motor examination normal muscle tone, strength to 4 extremities. DTR are +2, planter's are flexor. Sensory exam; normal coordination, no ataxia, gait stable. Cerebellar exam: [id number] and [id number] is normal. Extrapyramidal system: No tremors, no rigidity with normal facial expressions. Pronator drift not present Course Reevaluation(s) Reevaluation #1: 78-year-old male + flu came in after had syncopal episode and found to be hypoxic in the ED. Chest x-ray shows no superimposed infection/pneumonia. +orthostatic VS. Continue with oxygen and IV fluids (administrated in the ED). Time: 08:57 Medical Decision Making Differential Diagnosis Differential Diagnoses: The differential diagnosis associated with the presentation includes (ACS, pneumonia, pneumothorax, pleural effusion, dehydration, HARRY, electrolyte derangement, severe anemia, viral upper respiratory infection.) Admission/Observation Consideration of admission/observation: Escalation of care including admission/observation considered Consult Healthcare Provider Management of the patient was discussed with: Hospitalist (Dr. Mills) Lab Data MDM Lab Attestation statement: I reviewed the patient's lab results. 11/16/24 07:07 11/16/24 07:07 Labs: Lab Results 11/16/24 11/16/24 Range/Units 07:06 07:07 WBC 10.5 (4.8-10.8) X10*3/uL RBC 4.61 (4.60-5.80) X10*6/uL Hgb 13.4 L (14.0-18.0) g/dl Hct 39.4 L (42.0-52.0) % MCV 85.5 (80.0-98.0) fL MCH 29.1 (27.0-33.0) pg MCHC 34.0 (31.0-36.0) g/dl RDW 12.7 (11.0-16.0) % Plt Count 160 D (160-400) X10*3/uL MPV 9.9 (9.4-12.4) fL Immature Gran % (Auto) 0.5 H (0.0-0.4) % Neut % (Auto) 88.9 H (45-73) % Lymph % (Auto) 3.4 L (20-40) % [place] % (Auto) 6.9 (2-11) % Eos % (Auto) 0.0 (0-4) % Baso % (Auto) 0.3 (0-2) % Lymph # (Auto) 0.4 L (1.2-4.9) X10*3/uL [place] # (Auto) 0.7 (0.1-1.2) X10*3/uL Eos # (Auto) 0.0 (0.0-0.4) X10*3/uL Baso # (Auto) 0.0 (0.0-0.2) X10*3/uL Abs Immat Gran (auto) 0.05 H (0.00-0.03) X10*3/uL Absolute Neuts (auto) 9.4 H (2.0-8.3) x10*3/uL Absolute Nucleated RBC 0.000 (0.0-0.012) X10*3/uL Nucleated RBC % (auto) 0.0 (0.0-0.2) /100WBC Sodium 136 (135-145) mmol/L Potassium 4.0 (3.3-5.1) mmol/L Chloride 104 (96-108) mmol/L Carbon Dioxide 23 (22-29) mmol/L Anion Gap 13 (12-20) BUN 18 H (9-16) mg/dL Creatinine 0.90 (0.5-1.4) mg/dL Estim Creat Clear Calc 70.9 Estimated GFR > 60 Random Glucose 147 H (60-115) mg/dL Calcium 8.7 D (8.4-10.2) mg/dL Total Bilirubin 0.6 (0.0-1.0) mg/dL AST 28 (5-37) U/L ALT 21 (0-40) U/L Alkaline Phosphatase 53 (39-117) U/L Troponin I High Sens 5.0 (<3.5-35.0) ng/L Total Protein 6.8 (6.5-8.0) g/dL Albumin 3.9 (3.5-5.0) g/dL Lipase 18 (8-78) U/L Influenza Type A (PCR) POSITIVE A (Negative) Influenza Type B (PCR) NEGATIVE (Negative) RSV RNA Qual (PCR) NEGATIVE (Negative) SARS-CoV-2 RNA (RT-PCR) NEGATIVE (Negative) Independent Interpretation I performed an independent interpretation of an: Plain X-Ray (Chest: No acute findings.) Radiology Impression Discussion of test interpretation with radiology: I have reviewed the radiologist's reading. Discharge Plan Discharge Clinical Impression: Hypoxia, Dehydration, Influenza A, Syncope Patient Disposition: Admitted As Inpatient Print Language: Luxembourgish
[2024-11-16 07:25] LABS: Alanine Aminotransferase 21 U/L (0-40); Albumin Level 3.9 g/dL (3.5-5.0); Alkaline Phosphatase 53 U/L (39-117); Anion Gap 13 (12-20); Aspartate Amino Transferase 28 U/L (5-37); Bilirubin Total 0.6 mg/dL (0.0-1.0); Blood Urea Nitrogen 18 mg/dL (9-16); Calcium 8.7 mg/dL (8.4-10.2); Carbon Dioxide 23 mmol/L (22-29); Chloride 104 mmol/L (96-108); Creatinine Clr Calc Pharmacy 70.9; Estimated Glomerular Filt Rate > 60; Glucose Random 147 mg/dL (60-115); Lipase 18 U/L (8-78); Sodium 136 mmol/L (135-145); Total Protein 6.8 g/dL (6.5-8.0)
[2024-11-16 07:54] LABS: Influenza A PCR POSITIVE (Negative); Influenza B PCR NEGATIVE (Negative); Resp Syncy Virus RNA Qual PCR NEGATIVE (Negative); SARS COV2 PCR INHOUSE NEGATIVE (Negative)
--- NOTE | 2024-11-16 08:05 | PC.NURSE ---
flu positive, precautions put in place. at the bedside. patient resting quietly in room, remains on 2L nasal cannula. verbal order from provider for normal saline liter to infuse, infusing currently. placed on court monitor. call ozuna within reach
[2024-11-16] MEDS: 0.9 % Sodium Chloride 1,000 ML 999 ML IV (10:29)
[2024-11-16] MEDS: Oseltamivir Phosphate 75 MG CAPSULE PO ×2 (10:29→20:42)
--- NOTE | 2024-11-16 11:02 | PM.IMHP ---
History of Present Illness Date of Service: 11/16/24 Chief Complaint: syncope, malaise The patient is a 78-year-old male with no significant past medical history presents to the emergency room after several syncopal episodes on the day of admission. The patient who is bedside, helps corroborate the story. Apparently since Monday of this week, about 5 days prior to admission, the patient has been feeling unwell with what appears to be URI type symptoms. There is reports of decreased appetite. It appears that while ambulating from the bathroom, the patient felt dizzy and had a syncopal episode. There are no reports of seizure-like activity. In the emergency room, the patient was found to have positive orthostatic vitals. He tested positive for flu. He was hypoxic down to 88% on room air. He has been given Tamiflu and 1 L of IV fluids, been placed on 2 L supplemental oxygen and admission requested. Review of Systems Review of Systems: Negative except HPI/interval history. [facility] Medical History Blood pressure elevated without history of HTN Vitamin D deficiency Hypercholesterolemia Skin cancer GERD (gastroesophageal reflux disease) Family History Father Skin cancer Mother No problems noted. Son No problems noted. Daughter No problems noted. Other Mental health disorder Surgical History History of retinal detachment Status post surgical removal of malignant neoplasm of skin History of cataract surgery Social History Housing: House Alcohol intake: current Alcohol intake frequency: holidays/special occasions only Comment: once Q 2 month 4 drinks Patient Tobacco Use Status: Former Tobacco user Years Smoked: 1976 quit e-Cigarette/Vaping Use: Never Used Advance Directives: Yes Advance Directives Information Provided: Yes Advance Directives on File: No Do you have a plan to hurt others: No Plan Current occupational status: retired Cognitive needs: No Hearing needs: No Vision needs: Yes Meds Allergies Allergy/AdvReac Type Severity Reaction Status Date / Time No Known Allergies Allergy Verified 11/16/24 06:46 Active Medications: Current Medications Acetaminophen (Acetaminophen 325 Mg Tablet) 650 mg PO Q6H PRN PRN Reason: Pain, Mild 1-3,fever,headache Calcium Carbonate (Calcium Carbonate 750 Mg Tab.Chew) 750 mg PO Q4H PRN PRN Reason: Heartburn Enoxaparin Sodium (Enoxaparin Sodium 40 Mg/0.4 Ml Syringe) 40 mg SUBCUT Q24H [facility] Sodium Chloride (Ns) 1,000 mls @ 999 mls/hr IV .Q1H1M ONE Stop: 11/16/24 11:23 Last Admin: 11/16/24 10:29 Dose: 999 mls/hr Magnesium Hydroxide (Milk Of Magnesia 30 Ml Oral.Susp) 30 ml PO DAILY PRN PRN Reason: Constipation Melatonin (Melatonin 3 Mg Tablet) 6 mg PO BEDTIME PRN PRN Reason: Insomnia Sodium Chloride (0.9 % Sodium Chloride Flush 3 Ml Syringe) 3 ml IVFLUSH QSHIFT [facility] Home Medications ?Medication ?Instructions ?Recorded ?Confirmed ?Last Taken ?Type omeprazole 20 mg capsule,delayed 20 mg PO DAILY 03/08/21 07/04/24 Unknown History release Physical Exam Vital Signs and Narrative: Vital Signs: Last Vital Signs Temp 97.8 F 11/16/24 10:12 Pulse 79 11/16/24 10:12 Resp 16 11/16/24 10:12 BP 122/78 11/16/24 10:12 Pulse Ox 95 11/16/24 10:12 O2 Del Method Nasal Cannula 11/16/24 10:12 O2 Flow Rate 2 11/16/24 10:12 BMI result Body Mass Index 24.5 Const: Other: Constitutional - Ill appearing Eyes - PERRLA, EOMI Cardiovascular - S1S2, RRR, No edema Respiratory - dim sounds but no wheezing Gastrointestinal - NT / ND; +BS; No rebound or guarding - No CVA tenderness Extremities - no calf tenderness bilaterally, no swelling Musculoskeletal - Normal inspection, normal ROM Skin - Warm/Dry Neurological - Alert & oriented x3, No focal deficit Psychological - Appropriate affect Results Labs 11/16/24 07:07 11/16/24 07:07 Labs: Laboratory Results - last 24 hr 11/16/24 11/16/24 07:06 07:07 MCV 85.5 MCH 29.1 MCHC 34.0 RDW 12.7 Plt Count 160 D MPV 9.9 Immature Gran % (Auto) 0.5 H Neut % (Auto) 88.9 H Lymph % (Auto) 3.4 L [place] % (Auto) 6.9 Eos % (Auto) 0.0 Baso % (Auto) 0.3 Lymph # (Auto) 0.4 L [place] # (Auto) 0.7 Eos # (Auto) 0.0 Baso # (Auto) 0.0 Abs Immat Gran (auto) 0.05 H Absolute Neuts (auto) 9.4 H Absolute Nucleated RBC 0.000 Nucleated RBC % (auto) 0.0 Anion Gap 13 Estim Creat Clear Calc 70.9 Estimated GFR > 60 Random Glucose 147 H Calcium 8.7 D Total Bilirubin 0.6 AST 28 ALT 21 Alkaline Phosphatase 53 Troponin I High Sens 5.0 Total Protein 6.8 Albumin 3.9 Lipase 18 Influenza Type A (PCR) POSITIVE A Influenza Type B (PCR) NEGATIVE RSV RNA Qual (PCR) NEGATIVE SARS-CoV-2 RNA (RT-PCR) NEGATIVE Assessment and Plan (1) Influenza A: Status: Acute (2) Hypoxia: Status: Acute Plan 78-year-old male with no significant past medical history other than 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 On the day of admission, the patient had a syncopal episode likely related to orthostatic hypotension. He has tested positive for flu and is requiring supplemental oxygen. He will be admitted for further care and workup. 1. Acute respiratory failure with hypoxia 1a. Influenza A infection Desaturated to 88% on room air, improved on 2 L Chest x-ray without any infiltrates Could not appreciate any wheezing or rales on exam Given his presenting syncope (most likely due to orthostasis) along with hypoxia, we will rule out PE. CTA has been ordered IV fluids Tamiflu Supportive care 2. Orthostatic hypotension IVF, recheck ortho tomorrow 3. Syncope likely due to #2, but nonetheless, will require telemonitoring Full Code DVT pptx - Lovenox Pt with acute hypoxic resp failure without a known cause requiring further work up, complicated by orthostatic syncope + dehydration therefore expected to require at a minimum 2 midnights in the hospital for treatment, hence will be admitted as inpt. Quality Stroke Does the patient have a stroke diagnosis?: No VTE Prior VTE?: No VTE Risk Level:: Medical - moderate - high VTE Device Contraindication: N/A - Device Ordered VTE Drug Contraindication: N/A - Med Ordered
[2024-11-16] MEDS: Enoxaparin Sodium 40 MG/0.4 ML SYRINGE SUBCUT (11:39)
[2024-11-16] MEDS: Calcium Carbonate 750 MG TAB.CHEW PO (11:40)
[2024-11-16] MEDS: Lactated Ringers 1,000 ML 100 ML IVCONT (11:40)
[2024-11-16] MEDS: iohexoL 350 MG/ML 100 ML INFUS..BTL IV (12:11)
--- NOTE | 2024-11-16 12:14 | PHA.MEDREC ---
Addendum entered by Radha Uglade [facility] 11/16/24 12:27: kriss reviewed md notified med rec is complete Original Note: Pharmacy Consult ? Medication Reconciliation Pharmacy has completed the medication reconciliation. Spoke with patient to confirm.
[2024-11-16] MEDS: 0.9 % Sodium Chloride Flush 3 ML SYRINGE IVFLUSH (20:43)
[2024-11-17] VITALS (8 sets, daily range): BP systolic 124–147; BP diastolic 57–82; PULSE 67–93; RESP 18–20; TEMP 36.4–37.2; O2SAT 92–96
[2024-11-17] MEDS: Lactated Ringers 1,000 ML 100 ML IVCONT (00:24)
[2024-11-17] MEDS: Omeprazole 20 MG CAPSULE.DR PO (06:05)
[2024-11-17 06:39] LABS: Anion Gap 11 (12-20); Blood Urea Nitrogen 15 mg/dL (9-16); Calcium 8.3 mg/dL (8.4-10.2); Carbon Dioxide 25 mmol/L (22-29); Chloride 106 mmol/L (96-108); Creatinine Clr Calc Pharmacy 72.5; Estimated Glomerular Filt Rate > 60; Glucose Random 114 mg/dL (60-115); Potassium 4.2 mmol/L (3.3-5.1); Sodium 138 mmol/L (135-145)
[2024-11-17] MEDS: Oseltamivir Phosphate 75 MG CAPSULE PO ×2 (08:15→21:00)
--- NOTE | 2024-11-17 10:40 | P.PNIM_ITS ---
Subjective Subjective Date of Service: 11/17/24 Interval History: improved, but feeling sick Physical Exam 2 Vital Signs: Vital Signs: Last Vital Signs Temp 97.6 F 11/17/24 08:00 Pulse 93 11/17/24 08:41 Resp 20 11/17/24 08:00 BP 135/77 11/17/24 08:41 Pulse Ox 96 11/17/24 08:00 O2 Del Method Room Air 11/17/24 08:00 O2 Flow Rate 2 11/16/24 18:56 BMI result Body Mass Index 25.2 General: AO X 3, no acute distress Resp: CTA bilateral, no accessory muscles used CVS: S1,S2,RRR GI: soft, non tender, non distended Neuro: motor grossly intact, alert Psych: appropriate affect, appropriate insight Objective Data Active Medications Acetaminophen (Acetaminophen 325 Mg Tablet) 650 mg PO Q6H PRN PRN Reason: Pain, Mild 1-3,fever,headache Calcium Carbonate (Calcium Carbonate 750 Mg Tab.Chew) 750 mg PO Q4H PRN PRN Reason: Heartburn Last Admin: 11/16/24 11:40 Dose: 750 mg Documented By: JACE Enoxaparin Sodium (Enoxaparin Sodium 40 Mg/0.4 Ml Syringe) 40 mg SUBCUT Q24H [facility] Last Admin: 11/16/24 11:39 Dose: 40 mg Documented By: JACE Magnesium Hydroxide (Milk Of Magnesia 30 Ml Oral.Susp) 30 ml PO DAILY PRN PRN Reason: Constipation Melatonin (Melatonin 3 Mg Tablet) 6 mg PO BEDTIME PRN PRN Reason: Insomnia Omeprazole (Omeprazole 20 Mg Capsule.) 20 mg PO DAILY@0630 [facility] Last Admin: 11/17/24 06:05 Dose: 20 mg Documented By: MIKAYLA Oseltamivir Phosphate (Oseltamivir Phosphate 75 Mg Capsule) 75 mg PO Q12H [facility] Stop: 11/20/24 22:01 Last Admin: 11/17/24 08:15 Dose: 75 mg Documented By: REGGIE Sodium Chloride (0.9 % Sodium Chloride Flush 3 Ml Syringe) 3 ml IVFLUSH QSHIFT [facility] Last Admin: 11/17/24 08:18 Dose: Not Given Documented By: REGGIE Non-Admin Reason: IV Running Labs 11/16/24 07:07 11/17/24 06:10 Labs: Laboratory Results - last 24 hr 11/17/24 06:10 Anion Gap 11 L Estim Creat Clear Calc 72.5 Estimated GFR > 60 Random Glucose 114 Calcium 8.3 L Assessment and Plan (1) Influenza A: Status: Acute Plan 78M presented with syncope, found to have flu Acute hypoxic respiratory failure secondary to flu Continue Tamiflu, now on room air, CTA negative for PE Syncope Likely due to orthostatic hypotension IV fluids, monitor DVT prophylaxis with Lovenox Full Code reason for continued hospitalization: Still feeling unwell, need for IV hydration Quality Stroke Does the patient have a stroke diagnosis?: No VTE Prior VTE?: No VTE Risk Level:: Medical - moderate - high VTE Device Contraindication: N/A - Device Ordered VTE Drug Contraindication: N/A - Med Ordered
[2024-11-17 11:18] LABS: Troponin-I High Sensitivity 5.6 ng/L (<3.5-35.0)
[2024-11-17] MEDS: Enoxaparin Sodium 40 MG/0.4 ML SYRINGE SUBCUT (11:47)
--- NOTE | 2024-11-17 14:26 | MHC.CM.PN ---
IMM 11/17/24, Pt. lives with his iwfe, he is functionally independent, PCP is confirmed: Dr. Park. HCP is his , copy requested. to transport home at DC, DCP: home, self care. CM to follow for DC needs.
[2024-11-17] MEDS: Calcium Carbonate 750 MG TAB.CHEW PO (15:05)
[2024-11-17] MEDS: 0.9 % Sodium Chloride Flush 3 ML SYRINGE IVFLUSH ×2 (15:05→21:00)
[2024-11-18] VITALS (7 sets, daily range): BP systolic 129–144; BP diastolic 73–86; PULSE 66–79; RESP 18–20; TEMP 36.6–37.1; O2SAT 93–94
[2024-11-18] MEDS: Omeprazole 20 MG CAPSULE.DR PO (05:30)
[2024-11-18 06:42] LABS: Hematocrit 38.9 % (42.0-52.0); Hemoglobin 13.2 g/dl (14.0-18.0); Mean Corpuscular HGB Conc 33.9 g/dl (31.0-36.0); Mean Corpuscular Volume 85.5 fL (80.0-98.0); Platelet Count 168 X10*3/uL (160-400); Red Blood Count 4.55 X10*6/uL (4.60-5.80); Red Cell Distribution Width 12.6 % (11.0-16.0); White Blood Count 5.1 X10*3/uL (4.8-10.8)
[2024-11-18 06:57] LABS: Anion Gap 11 (12-20); Blood Urea Nitrogen 12 mg/dL (9-16); Calcium 8.3 mg/dL (8.4-10.2); Carbon Dioxide 25 mmol/L (22-29); Chloride 106 mmol/L (96-108); Estimated Glomerular Filt Rate > 60; Glucose Random 104 mg/dL (60-115); Magnesium 1.7 mg/dL (1.6-2.6); Potassium 4.1 mmol/L (3.3-5.1); Sodium 138 mmol/L (135-145)
[2024-11-18] MEDS: 0.9 % Sodium Chloride Flush 3 ML SYRINGE IVFLUSH (09:29)
[2024-11-18] MEDS: Enoxaparin Sodium 40 MG/0.4 ML SYRINGE SUBCUT (09:29)
[2024-11-18] MEDS: Oseltamivir Phosphate 75 MG CAPSULE PO (09:29)
--- NOTE | 2024-11-18 10:45 | P.DS_ITS ---
DS: Providers Provider Date of Service: 11/18/24 Date of admission: 11/16/24 10:57 Date of discharge: 11/18/24 Primary care physician: Kentrell Park MD DS: Diagnosis Discharge Diagnosis (1) Influenza A: Status: Acute DS: Summary Hospital Course Hospital Course: from initial hpi: 78-year-old male with no significant past medical history presents to the emergency room after several syncopal episodes on the day of admission. The patient who is bedside, helps corroborate the story. Apparently since Monday of this week, about 5 days prior to admission, the patient has been feeling unwell with what appears to be URI type symptoms. There is reports of decreased appetite. It appears that while ambulating from the bathroom, the patient felt dizzy and had a syncopal episode. There are no reports of seizure- like activity. In the emergency room, the patient was found to have positive orthostatic vitals. He tested positive for flu. He was hypoxic down to 88% on room air. He has been given Tamiflu and 1 L of IV fluids, been placed on 2 L supplemental oxygen and admission requested. hospital course: Patient was admitted for acute hypoxic respiratory failure secondary to flu complicated by syncope. Was treated with Tamiflu. Weaned to room air. CTA of the chest was negative for PE. No events on telemetry. Orthostatic hypotension resolved. Patient will be discharged home on 5 more days of Tamiflu. Time Attestation Discharge Coordination Time (in mins): 37 Quality: Safe Use of Opioids Does Pt have an Active Cancer Diagnosis on the Problem List?: No Quality: Stroke Does the patient have a stroke diagnosis?: No Physical Exam Vital Signs: Vital Signs: Last Vital Signs Temp 97.8 F 11/18/24 07:32 Pulse 79 11/18/24 07:51 Resp 18 11/18/24 07:32 BP 134/86 11/18/24 07:51 Pulse Ox 93 11/18/24 07:32 O2 Del Method Room Air 11/18/24 07:32 O2 Flow Rate 2 11/16/24 18:56 BMI result Body Mass Index 25.2 General: AO X 3, no acute distress Resp: CTA bilateral, no accessory muscles used CVS: S1,S2,RRR GI: soft, non tender, non distended Neuro: motor grossly intact, alert Psych: appropriate affect, appropriate insight DS: Data Data Completed and Pending Labs on day of discharge: Laboratory Results - last 24 hr 11/17/24 11/18/24 10:29 06:17 WBC 5.1 RBC 4.55 L Hgb 13.2 L Hct 38.9 L MCV 85.5 MCH 29.0 MCHC 33.9 RDW 12.6 Plt Count 168 MPV 10.0 Absolute Nucleated RBC 0.000 Nucleated RBC % (auto) 0.0 Sodium 138 Potassium 4.1 Chloride 106 Carbon Dioxide 25 Anion Gap 11 L BUN 12 Creatinine 0.76 Estim Creat Clear Calc 84.0 Estimated GFR > 60 Random Glucose 104 Calcium 8.3 L Magnesium 1.7 Troponin I High Sens 5.6 Discharge Plan Discharge Anticipated Discharge Date/Time: 11/18/24 10:42 Patient Disposition: Home, Self-Care Discharge Diagnosis: flu Referrals: Po,Kentrell Rainey MD [Primary Care Provider] - 1 Week Discharge Medications: New oseltamivir [Tamiflu] 75 mg Capsule 75 mg PO Q12H Qty: 5 0RF Continued sildenafil 50 mg tablet 50 mg PO DAILY PRN (Reason: sexual activity) Qty: 10 11RF Rx Instructions: administer 30 minutes to 4 hours before activity omeprazole 20 mg capsule,delayed release(DR/EC) 20 mg PO DAILY Discharge Orders: Discharge Order (Routine); Ordered 11/18/24 Ordered By: Mj Myles Diet: Advance to usual diet Activity on Discharge: As tolerated Stand Alone Forms: Patient Portal Discharge page Print Language: Armenian Care Plan Goals: recovery Health Concerns: flu, sycnope Plan of Treatment: complete tamiflu course, hydration Assessment: see above
--- NOTE | 2024-11-18 10:49 | MHC.CM.PN ---
PT MEDICALLY CLEARED FOR DC HOME SELF-CARE, PT FOR TRANSPORT AT 1PM.
== END 2024-11-18 13:34 | disposition home or self-care (01) | DRG 193 ==
LOC: HO.ED 09:03 → HO.EDOVER 11:36 → HO.IMC 14:39
PROVIDERS: Admitting Provider Family Medicine; Emergency Provider Emergency Medicine; PCP Internal Medicine; Visit Provider Internal Medicine
DX: J10.1 Influenza due to other identified influenza virus with other respiratory manifestations (principal); J96.01 Acute respiratory failure with hypoxia; E86.0 Dehydration; I95.1 Orthostatic hypotension; Z20.822 Contact with and (suspected) exposure to COVID-19; Z87.891 Personal history of nicotine dependence; Z79.899 Other long term (current) drug therapy
CPT/HCPCS: 0241U; 36415; 71045; 71275; 80048; 80053; 83690; 83735; 84484; 85025; 85027; 93005; 99285; J1650; J7120; Q9967

== ENCOUNTER → 2024-11-16 06:44 | Outpatient (BNV) | payer MEDICARE, SELFPAY | PROVIDERS: Admitting Provider Family Medicine; Emergency Provider Emergency Medicine; PCP Internal Medicine; Visit Provider Internal Medicine | DX: R94.31 Abnormal electrocardiogram [ECG] [EKG] (principal); R55 Syncope and collapse | CPT/HCPCS: 93010 ==

== ENCOUNTER → 2024-11-16 06:49 | Outpatient (BNV) | payer MEDICARE, SELFPAY | PROVIDERS: Emergency Provider Emergency Medicine; PCP Internal Medicine; Visit Provider Family Medicine | DX: J96.01 Acute respiratory failure with hypoxia (principal); J09.X2 Influenza due to identified novel influenza A virus with other respiratory manifestations | CPT/HCPCS: 99223; 99232; 99239 ==

== ENCOUNTER → 2024-11-16 06:55 | Outpatient (BNV) | payer MEDICARE, SELFPAY | PROVIDERS: Emergency Provider Emergency Medicine; PCP Internal Medicine; Visit Provider Radiology Diagnostic Radiology | DX: R05.9 Cough, unspecified (principal); R55 Syncope and collapse; N28.1 Cyst of kidney, acquired | CPT/HCPCS: 71045; 71275 ==

== ENCOUNTER 2024-11-22 09:03 | Outpatient (AMB) | payer OTHER, SELFPAY ==
--- NOTE | 2024-11-22 09:13 | MHC.PC.OV ---
Vital Signs 11/22/24 09:15 Height 5 ft 10 in Weight 175 lb 8 oz BMI 25.2 BP 124/64 Blood Pressure Location Lt brachial Position Sitting Pulse 76 Pulse Source Pulse Oximeter Temp 97.1 F Temp Source Skin Pulse Oximetry (%) 94 Oxygen Delivery Method Room Air Intake Visit Reasons: TCM [facility] Syncope 11/18 Intake Note: Patient is here for hospital discharge and TCM follow up. Patient was discharged from [facility] on 11/18/24. Mineral Mixer Required: No Tennis Coach: Not Required per policy Accompanied by: Self / Same As Patient Allergies No Known Allergies Allergy (Verified 11/22/24 09:15) Tobacco use date assessed: 11/22/24 Fall risk assessment: 1 Fall in past year Last assessed Fall Risk: 11/22/24 Dental Screening Dental Screen Date: 11/22/24 Did you have a dental visit in the last 12 months?: Yes Did you have a dental problem in the last 6 months where you did not have access to dental care?: No Was dental information given to patient?: Patient has dentist HPI TCM TCM Information Date of Discharge 11/18/24 Discharged From [facility] Interactive Contact Date (Reference documentation from this date) 11/19/24 HPI Comments History of Present Illness Details 78 y/o male patient who presents to the clinic for TCM. He was admitted at [facility] on 11/16/24 and discharged home 11/18/24 due to Influenza and Syncope. He was treated with Tamiflu. Today feeling better, denies fevers, chills, nausea or vomiting. [facility] Medical History Blood pressure elevated without history of HTN Vitamin D deficiency Hypercholesterolemia Skin cancer GERD (gastroesophageal reflux disease) Surgical History History of retinal detachment Status post surgical removal of malignant neoplasm of skin History of cataract surgery Family History Father Skin cancer Mother No problems noted. Son No problems noted. Daughter No problems noted. Other Mental health disorder Social History Household Members: Spouse Housing: House Do you presently have visiting nurse or other home services: No Alcohol intake: current Alcohol intake frequency: holidays/special occasions only Comment: once Q 2 month 4 drinks Patient Tobacco Use Status: Former Tobacco user Years Smoked: 1977 quit e-Cigarette/Vaping Use: Never Used Second Hand Smoke Exposure: Yes service: Yes Current occupational status: retired Cognitive needs: No Hearing needs: No Vision needs: Yes Questionnaire PHQ-9 Over the last 2 weeks, how often have you been bothered by any of the following problems? 1. Little interest or pleasure in doing things: not at all 2. Feeling down, depressed, or hopeless: not at all 3. Trouble falling or staying asleep, or sleeping too much: not at all 4. Feeling tired or having little energy: not at all 5. Poor appetite or overeating: not at all 6. Feeling bad about yourself - or that you are a failure or have let yourself or your family down: not at all 7. Trouble concentrating on things, such as reading the newspaper or watching television: not at all 8. Moving or speaking so slowly that other people could have noticed. Or the opposite - being so fidgety or restless that you have been moving around a lot more than usual: not at all 9. Thoughts that you would be better off or of hurting yourself in some way: not at all Total score: 0 Depression Screening Interpretation: Negative Depression Screening Done: Yes Source: Developed by Drs. Derrick Dutton, Joanie Mcgowan, Kailash Tran and colleagues, with an educational artemio from [employer]. Thrive Questionnaire Date Thrive assessed: 11/17/24 AUDIT C Alcohol Use Questionnaire (AUDIT-C) 1. How often do you have a drink containing alcohol?: Never Total Score: 0 JAMAL-7 AMB Questionnaire JAMAL-7 Date JAMAL - 7 assessed: 11/22/24 Feeling nervous, anxious, or on edge: 0 = Not at all Not being able to stop or control worryin = Not at all Worrying too much about different things: 0 = Not at all Trouble relaxin = Not at all Being so restless that it is hard to sit still: 0 = Not at all Becoming easily annoyed or irritable: 0 = Not at all Feeling afraid as if something awful might happen: 0 = Not at all Total JAMAL-7 score (0-4 normal; 5-9 mild; 10-14 moderate; 15-21 severe): 0 Source: Developed by Drs. Derrick Dutton, Joanie Mcgowan, Kailash Tran and colleagues, with an educational artemio from [employer]. Review of Systems Const All systems reviewed & are unremarkable except as noted in HPI and below Physical exam (Primary Care) Vital Signs: Last Vital Signs Temp 97.1 F 11/22/24 09:15 Pulse 76 11/22/24 09:15 BP 124/64 11/22/24 09:15 Pulse Ox 94 11/22/24 09:15 Oxygen Delivery Method Room Air 11/22/24 09:15 BMI result Body Mass Index 25.2 Tobacco/Smoking Status: Tobacco use Status Tobacco use date assessed 11/22/24 11/22/24 09:20 Patient Tobacco Use Status Former Tobacco user 11/22/24 09:14 e-Cigarette/Vaping Use Never Used 11/22/24 09:14 PHQ-9: PHQ-9 Score PHQ-9: Total score 0 11/22/24 09:25 Depression Screening Interpretation: Negative Thrive Assessment: Date of Thrive Assessment Date Thrive assessed 11/17/24 11/22/24 09:14 Const General: cooperative and no acute distress Orientation/consciousness: patient oriented x3 Resp Effort & Inspection: normal respiratory effort and able to speak in complete sentences Auscultation: clear to auscultation bilaterally, no crackles, no rales, no rhonchi and no wheezes Cardio Heart sounds: S1 normal heart sound present and S2 normal heart sound present Neuro General: patient oriented x3, gait normal and moves all extremities Coding Level of Care Code TCM Mod MDM <= 7 Days Diagnoses Influenza A J10.1 Time Spent (min) 20 Assessment & Plan Assessment & Plan (1) Influenza A: Code(s): J10.1 - Influenza due to other identified influenza virus with other respiratory manifestations Category: Medical Plan: Resolved.
[2024-11-22 09:15] VITALS: BP 124/64; PULSE 76; TEMP 36.2; O2SAT 94; BMI 25.2
--- OUTSIDE RECORDS SUMMARY | 2024-11-22 09:29 | XMS_ITS | Continuity of Care Document ---
Author Name [facility] Organization [facility] Care Team Providers Care Product Representative Name Role Phone [facility] Unavailable Unavailable Immunizations Combined list of available immunizations from the Department of Defense and Veterans Affairs facilities. Immunization Series Date Given Administered By Site Reaction Lot Number CVX Code Drug Entry Level Lab Technician Status Comments Source COVID-19 (MODERNA), MRNA, LNP-S, PF, 100 MCG/0.5 ML DOSE 2 2020 207 complet ed MOD; [id number]; 1 [place] [employer] [place] [facility] COVID-19 (MODERNA), MRNA, LNP-S, PF, 100 MCG/0.5 ML DOSE 1 2020 207 complet ed MOD; [id number]; 1 [facility] Encounters Combined list of: 1) Encounters from Department of Veterans Affairs facilities going backup to the last 18 months, not all VA inpatient encounters are included; 2) Encounters from the Department of Defense facilities going backup to 280 months. Location Location Details Encounter Type Encounter Number Reason For Visit Attending Provider ADM Date DC Date Status Disposition Source [place] [facility] [place] [facility] Outpatient Encounter [id number] 11/19 [place] [facility]
--- OUTSIDE RECORDS SUMMARY | 2024-11-22 09:29 | XMS_ITS | Patient Health Record ---
Author Organization [facility] Address [address] [place] [address] Care Team Providers Care Scarrer Name Role Phone Kentrell Park MD Primary Care Provider Jonathan Jerome Jr REASON FOR REFERRAL No Information MEDICATIONS Medication SIG (Take, Route, Fr equency, Duration) Notes Start Date End Date Status MoviPrep 100 GM as directed before c olonoscopy Orally for 1 dose 07/26/2013 10/16/2024 Active Omeprazole 20mg Acti ve SOCIAL HISTORY Sex Assigned At : Social History Observation Description Sex Assigned At Unknown PROBLEMS Problem Type ICD Code Onset Dates Problem Status W/U Status Risk SNOMED Code Notes Problem Colon cancer screening (V76.51) Active confirmed Colon cancer screening (320607838) PLAN OF TREATMENT Future Test Test Name Order Date COLONOSCOPY 07/26/2013 Insurance Providers Payer Name Payer Address Payer Phone Subscriber Number Group Number Insured Name Patient Relationship to Insured Coverage Start Date Coverage End Date [place] [address] [place] [address] [id number] EVELINCARISSA Self - patient is the insured MEDEX ATTN CLAIMS [address] [place] [address] [phone] [id number] EVELINCARISSA Self - patient is the insured MEDICAL (GENERAL) HISTORY Medical History History ICD Code cough Denies DC,DM,CVA,Lung disease,renal dise ase Surgical History Surgery Date(Month/Year) skin cancer 2009 detached retina 2010
--- OUTSIDE RECORDS SUMMARY | 2024-11-22 09:30 | XMS_ITS | Encounter Summary ---
Author Name [facility] Organization [facility] Address [address] [place] [address] Support Name Relationship Address Phone ABRAHAM WATERS Next of Kin [address] [place] [address] ABRAHAM WATERS Emergency Contact [address] [place] [address] Insurance Providers: All historical and current Section Date Range: From patient's date of to the date document was created. This section includes the names of all active insurance providers for the patient. Insurance Provider Type of Coverage Plan Name Start of Policy Coverage End of Policy Coverage Group Number Member ID Insurance Provider's Telephone Number Policy Lizama's Name Patient's Relationship to Policy Lizama [place] MED[place]ARE SUPPLEMEN SHIREEN MEDEX 2 Oct 16, 2017 [id number] Elizabeth WATERS PATIENT [facility] ARNOLDO FIGUEROA HIRE COUNT Y GR Oct 16, 2007 [id number] [phone] Elizabeth WATERS PATIENT MEDICARE (WNR) MEDICARE (M) PART B Oct 16, 2017 PART B [id number] Elizabeth WATERS PATIENT MEDICARE (WNR) MEDICARE (M) PART A Dec 15, 2011 PART A [id number] Elizabeth WATERS PATIENT Selected Encounter This section includes the information on record at [place] for the Encounter. Date/Time Encounter Type Encounter Description Reason Pro vider Source Nov 19, 2024 09:31 AM Outpatient Encounter COMMUNITY CARE CONSULT IHE Encounter Template Text not used by [facility] Encounter Notes: All associated encounter notes This section contains the clinical notes associated to the Encounter. Date/Time Encounter Note(s) Provider Source Nov 19, 2024 09:31 AM NONVA NOTE: LOCAL TITLE: COMMUNITY CARE-GAVI SELF PRESENTING CARE COORD PLAN STANDARD TITLE: NONVA NOTE DATE OF NOTE: NOV 19, 2024@09:31 ENTRY DATE: NOV 19, 2024@09:31:21 AUTHOR: SHERITA MTZ EXP COSIGNER: URGENCY: STATUS: COMPLETED COMMUNITY CARE-GAVI SELF PRESENTING CARE COORD PLAN NOTE Has ADDENDA Emergency Notification Intake Date Presenting to the Facility: Nov Method of Contact: Notified from ECR worklist Notification ID: [id number] [facility] Referral #: [facility] [place] Name: Hospital: [facility] Address: City: [place] State: [place] Zip Code: Phone : Community Facility Point of Contact: Name: Aye Phone: Chief complaint: SYNCOPE Primary Diagnosis: SYNCOPE, HYPOXIA, FLU Disposition Admitted Route of Admission: ER Date of Admission: Nov Admitting Diagnosis: SYNCOPE, HYPOXIA, FLU Community Care Provider: Confirm Level of Care: /jennifer/ SHERITA SINGER Signed: 11/19/2024 09:32 Receipt Acknowledged By: 11/19/2024 14:40 /jennifer/ Magali MULLINS,RN,CCM TRANSFER/TRAVELING COORDINATOR 11/19/2024 ADDENDUM STATUS: COMPLETED Discharge Disposition Date of discharge: Nov [place] Contact[place] [place]position Discharge to home /felipe MULLINS,RN,CCM TRANSFER/TRAVELING COORDINATOR Signed: 11/19/2024 14:40 SHERITA MTZ [place]
== END 2024-11-22 09:43 | disposition home or self-care (01) ==
PROVIDERS: PCP Internal Medicine; Visit Provider Nurse Practitioner Family
DX: J10.1 Influenza due to other identified influenza virus with other respiratory manifestations (principal)

== ENCOUNTER → 2024-11-22 09:03 | Outpatient (BNVA) | payer OTHER, SELFPAY | PROVIDERS: PCP Internal Medicine; Visit Provider Nurse Practitioner Family | DX: J10.1 Influenza due to other identified influenza virus with other respiratory manifestations (principal) | CPT/HCPCS: 99212 ==

== ENCOUNTER 2025-05-06 08:32 | Outpatient (REF) | payer MEDICARE, SELFPAY ==
--- OUTSIDE RECORDS SUMMARY | 2024-11-19 05:31 | XMS_ITS | Continuity of Care Document ---
Author Name [facility] Organization [facility] Care Team Providers Care Machine Stone Polisher Apprentice Name Role Phone [facility] Unavailable Unavailable Immunizations Combined list of available immunizations from the Department of Defense and Veterans Affairs facilities. Immunization Series Date Given Administered By Site Reaction Lot Number CVX Code Drug Rn Mobile Status Comments Source COVID-19 (MODERNA), MRNA, LNP-S, PF, 100 MCG/0.5 ML DOSE 2 2020 207 complet ed MOD; [id number]; 1 [place] [email or web address] [place] [facility] COVID-19 (MODERNA), MRNA, LNP-S, PF, 100 MCG/0.5 ML DOSE 1 2020 207 complet ed MOD; [id number]; 1 [facility] [email or web address] [facility] Encounters Combined list of: 1) Encounters from Department of Veterans Affairs facilities going backup to the last 18 months, not all VA inpatient encounters are included; 2) Encounters from the Department of Defense facilities going backup to 280 months. Location Location Details Encounter Type Encounter Number Reason For Visit Attending Provider ADM Date DC Date Status Disposition Source [place] [facility] Outpatient Encounter [id number] 11/19 [place] [email or web address]
[2025-05-06 08:46] LABS: MANUAL DIFF FLAG NO
--- OUTSIDE RECORDS SUMMARY | 2025-05-06 08:51 | XMS_ITS | Clinical Summary ---
Author Organization [facility] Address [address] [place] [address] Phone Care Team Providers Care Netezza Developer Name Role Phone Kentrell Park MD Primary Care Provider [phone] Allergies No known active allergies Medications omeprazole (PRILOSEC) 40 MG capsule Take 40 mg by mouth daily. Active Immunizations Immunization Administration Dates Next Due Td (adult),2 Lf Tetanus Toxoid, PF, Adsorbed Social History Tobacco Use Types Packs/Day Years Used Date Smoking Tobacco: Never Smokeless Tobacco: Never Tobacco Cessation:Counseling Given: Not Answered Education Answer Date Recorded Are you interested in more education? Not on jamaal e 04/17/2024 Are you concerned about learning? Not on file 04/17/2024 No 04/17/2024 No 04/17/2024 Digital Access Answer Date Recorded No 04/17/2024 No 04/17/2024 Reliable internet access at home? Not on file 04/17/2024 Device with a working camera? Not on file Sex and Gender Information Value Date Recorded Sex Assigned at Not on file Legal Sex Male 10:07 PM EDT Gender Identity Not on file Sexual Orientation Not on file Last Filed Vital Signs Vital Sign Reading Time Taken Comments Blood Pressure 114/73 04/17/2024 11:07 AM EDT Pulse 71 04/17/2024 11:07 AM EDT Temperature 36.4 C (97.6 F) 04/17/2024 11:07 AM EDT Respiratory Rate 18 04/17/2024 11:07 AM EDT Oxygen Saturation 98% 04/17/2024 11:07 AM EDT Inhaled Oxygen Concentration - - Weight - - Height - - Body Mass Index - - Plan of Treatment Health Maintenance Due Date Last Done Comments LIPID PANEL 1946 DEPRESSION SCREENING 1958 HEPATITIS C SCREENING 1964 SMOKING STATUS SCREENING (Once After 26 Yrs) 1972 PNEUMOCOCCAL VACCINES (50+ years) (1 of 1 - PCV) 1996 ZOSTER VACCINES (1 of 2) 1996 RSV VACCINE (1 - 1-dose 75+ series) 2021 COVID-19 VACCINE (5 - 2023- season) 2024 06/29/2023, 08/04/2022, 03/10/2022, Additional history exists Adult Td,Tdap Booster 01/01/2034 01/02/2024 HEPATITIS A VACCINES Aged Out No long er eligible based on patient's age to complete this topic HIB VACCINES Aged Out No longer eligi ble based on patient's age to complete this topic MENINGOCOCCAL VACCINES (ACWY) Aged Out No longer eligible based on patient's age to complete this topic MENINGOCOCCAL VACCINES (B) Aged Out N o longer eligible based on patient's age to complete this topic Medical Devices Not on file Insurance [facility] MEDEX SUPPLEMENT MEDICARE PART A & B [employer] MEDEX SUPPLEMENT MEDICARE PART A & B [employer] MEDEX SUPPLEMENT Next Safety CROSS MEDEX SUPPLEMENT [employer] MEDEX SUPPLEMENT MEDICARE PART A & B BLUE CROSS MEDEX SUPPLEMENT [employer] MEDEX SUPPLEMENT MEDICARE PART A & B [employer] CROSS MEDEX SUPPLEMENT MEDICARE PART A & B BLUE CROSS MEDEX SUPPLEMENT MEDICARE PART A & B Care Teams Netezza Developer Relationship Specialty Start Date End Date Kentrell Park MD [address] [place] [phone] PCP - General 07/31/17 Additional Source Comments The information contained in this document represents components of the legal health record. It is not the complete legal health record.[facility]
--- OUTSIDE RECORDS SUMMARY | 2025-05-06 08:51 | XMS_ITS | Patient Health Record ---
Author Organization [facility] Address [address] [place] [address] Care Team Providers Care Navy Diver Name Role Phone Kentrell Park MD Primary Care Provider Jonathan Jerome Jr Unavailable Allergies No Known Allergies Reason For Referral No Information Medications Medication SIG (Take, Route, Fr equency, Duration) Notes Start Date End Date Status Omeprazole 20mg Acti ve MoviPrep 100 GM as directed before c olonoscopy Orally for 1 dose 07/26/2013 Not-Taking Social History Tobacco Use: Social History Observation Description Date Details (start date - stop date) Never Smoker NA - NA Tobacco Control (Standard) Question Answer Notes Tobacco use: Nonsmoker AUDIT-C (Standard) Question Answer Notes Did you have a drink contain ing alcohol in the past year? Yes How often did you have a dri nk containing alcohol in the past year? 2 to 4 times a month (2 points) How many drinks did you have on a typical day when you were drinking in the past year? 3 or 4 drinks (1 point) How often did you have six o r more drinks on one occasion in the past year? Never (0 point) Points 3 Interpretation Negative Problems Problem Type SNOMED Code ICD Code Onset Dates Problem Status W/U Status Risk Notes Problem Colon cancer screening (214500401) Colon cancer screening (V76.51) Active confirmed Problem Colon cancer screening (417384602) Colon cancer screening (Z12.11) Active confirmed Problem Diverticular disease of colon (379336504) Diverticulosis (K57.90) Active confirmed Problem Gastroesophageal reflux disease (240139895) GERD (gastroesophageal reflux disease) (K21.9) Active confirmed Vital Signs Heart Rate 80 /min 05/01/2025 Blood pressure diastolic 01 mm Hg 05/01/2025 Height 69.25 in 05/01/2025 Blood pressure systolic 001 mm Hg 05/01/2025 Weight 177.4 lbs 05/01/2025 BMI 26.01 kg/m2 05/01/2025 Encounters Encounter Location Date Provider Diagnosis [facility] [address] [place] [address] 05/01/2025 Jonathan Prakash Jr GERD (gastroesophageal reflux disease) K21.9 ; Colon cancer screening Z12.11 and Diverticulosis K57.90 Assessments Encounter Date Diagnosis (ICD Code) Assessment Notes Treatment Notes Treatment Clinical Notes Section Notes 05/01/2025 Colon cancer screening (ICD-10 - Z12.11) We discussed gastroesophageal reflux disease today. We discussed diet, lifestyle modifications, and weight management. He will continue omeprazole. Colonoscopy for screening purposes is optional after age 75. We reviewed this in detail. He will consider this and let us know if he elects to proceed. Reflux symptoms are doing well and he has no symptoms from the diverticulosis noted on his previous examination. High-fiber diet is encouraged. 05/01/2025 GERD (gastroesophageal reflux disease) (ICD-10 - K21.9) We discussed gastroesophageal reflux disease today. We discussed diet, lifestyle modifications, and weight management. He will continue omeprazole. Colonoscopy for screening purposes is optional after age 75. We reviewed this in detail. He will consider this and let us know if he elects to proceed. Reflux symptoms are doing well and he has no symptoms from the diverticulosis noted on his previous examination. High-fiber diet is encouraged. 05/01/2025 Diverticulosis (ICD-10 - K57.90) We discussed gastroesophageal reflux disease today. We discussed diet, lifestyle modifications, and weight management. He will continue omeprazole. Colonoscopy for screening purposes is optional after age 75. We reviewed this in detail. He will consider this and let us know if he elects to proceed. Reflux symptoms are doing well and he has no symptoms from the diverticulosis noted on his previous examination. High-fiber diet is encouraged. Plan Of Treatment Future Test Test Name Order Date COLONOSCOPY 07/26/2013 Insurance Providers Payer Name Payer Address Payer Phone Subscriber Number Group Number Insured Name Patient Relationship to Insured Coverage Start Date Coverage End Date MEDICARE OF [place] [address] [id number] [id number] CARISSA WATERS Self - patient is the insured MEDEX ATTN CLAIMS [address] [place] [address] [id number] CARISSA WATERS Self - patient is the insured Medical (General) History Medical History History ICD Code Gastroesophageal reflux disease High blood pressure without a diagnosis of hypertension Hyperlipidemia Skin cancer Vitamin D deficiency Surgical History Surgery Date(Month/Year) Repair of detached retina 2010 Hospitalization History Reason Date(Month/Year) had the flu in August 2024
[2025-05-06 09:32] LABS: Hematocrit 42.1 % (42.0-52.0); Hemoglobin 14.1 g/dl (14.0-18.0); Imm Gran Abs Auto 0.01 X10*3/uL (0.00-0.03); Imm Gran Pct Auto 0.2 % (0.0-0.4); Lymphocytes Absolute Auto 1.2 X10*3/uL (1.2-4.9); Mean Corpuscular HGB Conc 33.5 g/dl (31.0-36.0); Mean Corpuscular Hemoglobin 28.8 pg (27.0-33.0); Mean Corpuscular Volume 85.9 fL (80.0-98.0); NRBC Abs Auto 0.000 X10*3/uL (0.0-0.012); NRBC Pct Auto 0.0 /100WBC (0.0-0.2); Platelet Count 207 X10*3/uL (160-400); Red Blood Count 4.90 X10*6/uL (4.60-5.80); White Blood Count 5.2 X10*3/uL (4.8-10.8)
[2025-05-06 09:38] LABS: Hemoglobin A1C 140.3458 umol/L; Total Hemoglobin (HGBA1C) 3698.5623 umol/L
[2025-05-06 10:07] LABS: Alanine Aminotransferase 15 U/L (0-40); Albumin Level 4.2 g/dL (3.5-5.0); Alkaline Phosphatase 52 U/L (39-117); Anion Gap 9 (12-20); Aspartate Amino Transferase 21 U/L (5-37); Blood Urea Nitrogen 19 mg/dL (9-16); Calcium 8.9 mg/dL (8.4-10.2); Carbon Dioxide 30 mmol/L (22-29); Chloride 108 mmol/L (96-108); Cholesterol 207 mg/dL (<200); Estimated Glomerular Filt Rate > 60; HDL Cholesterol 43 mg/dL (>40); Potassium 4.3 mmol/L (3.3-5.1); Sodium 143 mmol/L (135-145); Total Protein 6.9 g/dL (6.5-8.0); Triglycerides 107 mg/dL (<150)
[2025-05-06 10:14] LABS: Free T4 (Free Thyroxine) 1.15 ng/dL (0.71-1.85); Thyroid Stimulating Hormone 1.44 uIU/mL (0.32-4.0)
[2025-05-06 10:29] LABS: Folate 10.7 ng/mL (> or = 4.0); Vitamin B12 246 pg/mL (200-900)
== END 2025-05-06 08:33 | disposition home or self-care (01) ==
LOC: HO.LAB 08:32
PROVIDERS: PCP Internal Medicine; Visit Provider Internal Medicine
DX: R73.02 Impaired glucose tolerance (oral) (principal); E78.00 Pure hypercholesterolemia, unspecified
CPT/HCPCS: 36415; 80053; 80061; 82607; 82746; 83036; 84153; 84439; 84443; 85025

== ENCOUNTER 2025-07-11 10:16 | Outpatient (AMB) | payer MEDICARE, SELFPAY ==
[2025-07-11 10:22] VITALS: BP 130/68; PULSE 76; O2SAT 97; BMI 25.1
--- NOTE | 2025-07-11 10:22 | AM.OFFVISMDC ---
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 Son No problems noted. Daughter No problems noted. Other Mental health disorder Social History (Updated 07/11/25 @ 10:47 by Kentrell Park MD) Household Members: Spouse Housing: House Do you presently have visiting nurse or other home services: No Alcohol intake: current Alcohol intake frequency: holidays/special occasions only Comment: once Q 2 month 4 drinks , once a month 2drinks Patient Tobacco Use Status: Former Tobacco user Years Smoked: 1976 quit e-Cigarette/Vaping Use: Never Used Second Hand Smoke Exposure: Yes service: Yes Current occupational status: retired Cognitive needs: No Hearing needs: No Vision needs: Yes Questionnaire Medicare Wellness Checkup [age] What gender do you identify with?: male During the past 4 weeks, how much have you been bothered by emotional problems such as feeling anxious, depressed, irritable, sad or downhearted, and blue?: not at all During the past 4 weeks, has your physical & emotional health limited your social activities with family, friends, neighbors, or groups?: not at all During the past 4 weeks, how much bodily pain have you generally had?: mild pain During the past 4 weeks, was someone available to help you if you needed & wanted help?: yes, as much as I wanted During the past 4 weeks, what was the hardest physical activity you could do for at least 2 minutes?: moderate Can you get to places out of walking distance without help? (For eg., can you travel alone on buses, taxis or drive your car?): Yes Can you go shopping for groceries or clothes without someone's help?: Yes Can you prepare your own meals?: Yes Can you do your housework without help?: Yes Because of any health problems, do you need the help of another person with your personal care needs such as eating, bathing, dressing or getting around the house?: No Can you handle your own money without help?: Yes During the past 4 weeks, how would you rate your health in general?: good During the past 4 weeks how have things been going for you?: pretty well Are you having difficulties driving your car?: sometimes Do you always fasten your seat belt when you are in a car?: yes, usually During past 4 weeks, have you been bothered by the following: never: Falling or dizzy when standing up, Trouble eating well?, Teeth or denture problems?, Problems using the telephone? and Tiredness or fatigue? and sometimes: Sexual problems? Have you fallen 2 or more times in the past year?: No Are you afraid of falling?: No Are you a smoker?: no During the past 4 weeks, how many drinks of wine, beer, or other alcoholic beverages did you have?: 1 drink or less per week Do you exercise for about 20 minutes 3 or more times a week?: yes, most of the time Have you been given information to help with the following?: yes: Hazards in your house that might hurt you? and yes: Keeping track of your medications? How often do you have trouble taking medicines the way you have been told to take them?: I do not have to take medicine How confident are you that you can control & manage most of your health problems?: very confident What is your race?: White PHQ-9 Over the last 2 weeks, how often have you been bothered by any of the following problems? 1. Little interest or pleasure in doing things: not at all 2. Feeling down, depressed, or hopeless: not at all 3. Trouble falling or staying asleep, or sleeping too much: not at all 4. Feeling tired or having little energy: not at all 5. Poor appetite or overeating: not at all 6. Feeling bad about yourself - or that you are a failure or have let yourself or your family down: not at all 7. Trouble concentrating on things, such as reading the newspaper or watching television: not at all 8. Moving or speaking so slowly that other people could have noticed. Or the opposite - being so fidgety or restless that you have been moving around a lot more than usual: not at all 9. Thoughts that you would be better off or of hurting yourself in some way: not at all Total score: 0 Depression Screening Interpretation: Negative Depression Screening Done: Yes 93559 - PHQ-9 Billing: Yes Source: Developed by Drs. Derrick Dutton, Joanie Mcgowan, Kailash Tran and colleagues, with an educational artemio from [employer]. Review of Systems Const Denies poor appetite and Denies weakness Eyes Denies no additional complaints ENT Reports Normal hearing present, Denies dizziness, Denies nasal congestion, Denies tinnitus and Denies sore throat Card Denies chest pain, Denies syncope, Denies rapid heart rate and Denies dyspnea Resp Denies cough and Denies dyspnea GI Denies change in stool character, Reports constipation, Denies diarrhea, Denies nausea and Denies vomiting Denies dysuria and Denies urinary frequency Neuro Reports Normal hearing present, Denies confusion, Denies dizziness, Denies syncope and Denies weakness Psych Denies confusion Physical Exam Vital Signs: Last Vital Signs Pulse 76 07/11/25 10:22 BP 130/68 07/11/25 10:22 Pulse Ox 97 07/11/25 10:22 Oxygen Delivery Method Room Air 07/11/25 10:22 BMI result Body Mass Index 25.1 Const General: No confusion Orientation/consciousness: No confusion HEENT Head: Yes normocephalic Ears: external ears normal and TM's normal bilaterally Face and sinus: Yes normal facial exam Mouth: moist mucous membranes Throat: Yes tonsils normal Eyes Conjunctivae: conjunctivae normal Pupils: Equal, round and reactive pupils present and Pupil accommodation reflex normal Direct Ophthalmoscopy: normal light reflex Neck Neck: No lymphadenopathy Thyroid: Thyroid normal Chest Chest palpation & inspection: normal inspection of the chest Resp Effort & Inspection: normal respiratory effort and no audible wheezes Auscultation: clear to auscultation bilaterally, no crackles, no wheezes and lung sounds not diminished Cardio Rate: regular rate Rhythm: regular rhythm Peripheral pulses: radial pulses present and dorsalis pedis present GI Palpation (GI): no masses Auscultation: normal bowel sounds and normoactive bowel sounds Rectal Exam - Male: Yes deferred Skin General skin exam: no rashes or lesions noted Rashes: no rashes Neuro General: No confusion Cranial nerves: Yes Equal, round and reactive pupils present and Yes Normal hearing present Cognition (Neuro): normal cognition Gait exam (Neuro): Normal gait present Motor exam (neuro): 5/5 motor strength present throughout Deep tendon reflexes (DTR's): Right brachioradialis reflex intensity grade: 2+, Left brachioradialis reflex intensity grade: 2+, Right patellar reflex intensity grade: 2+ and Left patellar reflex intensity grade: 2+ Extrem General: No edema Assessment & Plan Assessment & Plan (1) Encounter for subsequent annual wellness visit (AWV) in Medicare patient: Code(s): Z00.00 - Encounter for general adult medical examination without abnormal findings Plan: Patient is advised to eat healthy, keep well hydrated, keep active and have adequate sleep. (2) GERD (gastroesophageal reflux disease): Code(s): K21.9 - Gastro-esophageal reflux disease without esophagitis Qualifiers: Esophagitis presence: without esophagitis Qualified Code(s): K21.9 - Gastro-esophageal reflux disease without esophagitis Plan: Avoid the foods that causes that usually spicy foods, tomato products, juices, coffee, soda and foods that your sensitive to. After eating do not lie down, allow 3-4 hours before in lie down. And keep the head of bed above 30 degrees to avoid the acid from going up. (3) Impaired glucose tolerance: Code(s): R73.02 - Impaired glucose tolerance (oral) Plan: Decrease the amount of carbohydrate intake, pasta, bread, rice and potatoes are all sugar and that is aside from all the sweet stuff, remember that fruits are good but they are Sweet also. (4) Hypercholesterolemia: Code(s): E78.00 - Pure hypercholesterolemia, unspecified Plan: Avoid fried foods, chicken skin, eggs, butter margarine, pastries and meat. Be it pork or beef they have a lot of cholesterol diet, LDL goal of less than 130 and triglyceride of less than 150 April 2025 last blood (5) Erectile dysfunction: Code(s): N52.9 - Male erectile dysfunction, unspecified Plan History of Present Illness The patient is a 79-year-old male presenting for an annual wellness visit. The patient has a history of Gastroesophageal Reflux Disease (GERD), managed with omeprazole 20 mg once daily. He reports experiencing heartburn, particularly at night, and acknowledges that his diet may contribute to his symptoms. The patient denies diarrhea but reports episodes of constipation. The patient has hypercholesterolemia, with an LDL cholesterol level of 143 mg/dL. He has been advised to aim for an LDL goal of less than 130 mg/dL and triglycerides less than 150 mg/dL. The patient has a history of hypertension, which is currently well-controlled. The patient was found to have a low Vitamin B12 level of 246 pg/mL. The patient had a colonoscopy last performed in 2013, with further screenings being optional after age 75. Health Maintenance - Colonoscopy last performed in 2013, further screenings optional after age 75 - Advised to maintain LDL cholesterol below 130 mg/dL and triglycerides below 150 mg/dL - Encouraged to receive flu vaccination in July Social History - Exercise: Engages in daily walking and cycling - Alcohol: Consumes two drinks per month - Tobacco: Denies use - Recreational Drugs: Denies use Review of Systems - Gastrointestinal: Reports heartburn, denies diarrhea, reports constipation - Cardiovascular: Denies chest pain, denies dizziness - Respiratory: Denies shortness of breath, denies cough - Neurological: Denies dizziness, denies syncope - Genitourinary: Reports nocturia once or twice per night Physical Exam General: Cooperative, healthy appearing, comfortable, no acute distress and well developed Orientation: Patient oriented x3 Limitations: No limitations Head: Normal to inspection Ears: Hearing grossly normal bilaterally Nose: Normal external nose present Face and sinus: Normal facial exam Eyes: Appearance normal, both eyes and all related structures Neck: Normal visual inspection and Yes full ROM Respiratory: Normal respiratory effort and able to speak in complete sentences. Clear to auscultation bilaterally Cardiovascular: Regular rate and rhythm. Normal S1 and S2 GI: Normal to inspection. Soft to palpation and nontender Skin: No rashes or lesions noted Neuro: Patient oriented x3 Extremities: Normal to inspection Results - Labs: Normal blood count, normal electrolytes, normal renal function, normal blood sugar, normal hemoglobin A1c, normal liver function tests, elevated LDL cholesterol at 143 mg/dL, low Vitamin B12 at 246 pg/mL - Imaging: Chest CT showed no pulmonary embolism Plan Patient was informed and verbally consented to the use of an ambient scribe for clinic note documentation during this visit. 1. Gastroesophageal Reflux Disease (Gerd) The patient will continue with omeprazole 20 mg once daily for GERD management. Dietary modifications were discussed to help alleviate symptoms, particularly avoiding foods that exacerbate heartburn. 2. Hypercholesterolemia The patient is advised to aim for an LDL cholesterol level below 130 mg/dL and triglycerides below 150 mg/dL through dietary changes. 3. Hypertension The patient's hypertension is well-controlled with current medication, and no changes are necessary at this time. 4. Vitamin B12 Deficiency The patient has a low Vitamin B12 level, and supplementation may be considered to address this deficiency. 5. Constipation The patient reports constipation, and dietary adjustments were suggested to improve bowel regularity. Discussion Notes During the visit, we discussed the management of GERD with omeprazole and dietary changes to reduce symptoms. We also reviewed the importance of maintaining cholesterol levels within target ranges through diet. The patient's hypertension is well-controlled, and no medication adjustments are needed. We considered Vitamin B12 supplementation due to low levels. Constipation management through dietary changes was also addressed. Patient Instructions - Continue taking omeprazole 20 mg once daily for GERD. - Follow dietary recommendations to manage cholesterol and alleviate GERD symptoms. - Consider Vitamin B12 supplementation as discussed. - Monitor bowel habits and adjust diet to improve regularity. - Plan to receive a flu shot in July. Medications: New tadalafil (Cialis) administer approximately 30min before sexual activity; do not use more than 1 dose per 24hrs 20 mg PO DAILY PRN 10 tabs 0RF sexual activity N52.9 - Male erectile dysfunction, unspecified pantoprazole 40 mg PO DAILY 30 tabs 1RF K21.9 - Gastro-esophageal reflux disease without esophagitis Discontinued sildenafil administer 30 minutes to 4 hours before activity Discontinued Reason: Change Referral Type 50 mg PO DAILY PRN 10 tabs 11RF sexual activity N52.9 - Male erectile dysfunction, unspecified Quality Reporting (2019) Depression/Bipolar (159/160/161/177) PHQ-9: Total score: 0 Coding Level of Care Code Medicare Subsequent (G0439) Diagnoses Encounter for subsequent annual wellness visit (AWV) in Medicare patient Z00.00 Gastroesophageal reflux disease without esophagitis K21.9 Esophagitis presence: without esophagitis Impaired glucose tolerance R73.02 Hypercholesterolemia E78.00 Erectile dysfunction N52.9 Additional Codes PHQ-9 - 66558 - PHQ-9 Billing: Yes ([id number])
--- OUTSIDE RECORDS SUMMARY | 2025-07-11 11:35 | XMS_ITS | Patient Health Record ---
Author Organization [facility] Address [address] [place] [address] Care Team Providers Care Adjunct Instructor In Economics Name Role Phone Kentrell Park MD Primary [...] Status Risk Notes Problem Colon cancer screening (838780837) Colon cancer screening (V76.51) Active confirmed Problem Colon cancer screening (172328357) Colon cancer screening (Z12.11) Active confirmed Problem Diverticular disease of colon (805538867) Diverticulosis (K57.90) Active confirmed Problem Gastroesophageal reflux disease (935780974) GERD (gastroesophageal reflux disease) (K21.9) Active confirmed Vital Signs Heart Rate 80 /min 05/01/2025 Blood pressure diastolic 01 mm Hg 05/01/2025 Height 69.25 in 05/01/2025 Blood pressure systolic 001 mm Hg 05/01/2025 Weight 177.4 lbs 05/01/2025 BMI 26.01 kg/m2 05/01/2025 Encounters Encounter Location Date Provider Diagnosis [facility] [address] [place] [address] 05/01/2025 Jonathan Prakash Jr GERD (gastroesophageal reflux [...] OF [place] [address] [address] [phone] [id number] CARISSA WATERS Self - patient is the insured MED[employer] ATTN CLAIMS [address] [place] [address] [phone] [id number] CARISSA WATERS Self - patient is the insured Medical (General) History Medical History History ICD Code Gastroesophageal reflux disease High blood pressure without a diagnosis of hypertension Hyperlipidemia Skin cancer Vitamin D deficiency Surgical History Surgery Date(Month/Year) Repair of detached retina 2010 Hospitalization History Reason Date(Month/Year) had the flu in August 2024
--- OUTSIDE RECORDS SUMMARY | 2025-07-11 11:35 | XMS_ITS | Clinical Summary ---
Author Organization [facility] Address [address] [place] [address] Phone Care Team Providers Care Budder Name Role Phone Kentrell Park MD Primary Care Provider [phone] Allergies No known active allergies Medications omeprazole [...] VACCINE (1 - 1-dose 75+ series) 2021 INFLUENZA VACCINE (#1) 2025 COVID-19 VACCINE ( - 2024- season) 2025 06/29/2023, 08/04/2022, 03/10/2022, Additional history exists Adult [...] topic Medical Devices Not on file Insurance MEDEX SUPPLEMENT MEDICARE PART A & B [employer] MEDEX SUPPLEMENT MEDICARE PART A & B CAP[employer] MEDEX [place]PPLE[place] [address] [address] [employer] MEDEX SUPPLEMENT [facility] MEDEX SUPPLEMENT MEDICARE PART A & B [employer] MEDEX SUPPLEMENT MEDICARE PART A & B Member Subscriber Plan / Payer (Ef fective 2017-Present) Name:Carissa Waters Member ID:[id number] Relation to Subscriber:Self Name:Carissa Waters Subscriber ID:[id number] Payer ID:[id number] Group ID:Not on file Type:Medicare Address: [facility] [employer] [facility] [address] [place] [address] [place] [phone] [employer] MEDEX SUPPLEMENT MEDICARE PART A & B [facility] MEDEX SUPPLEMENT MEDICARE PART A & B Care Teams Budder Relationship Specialty Start Date End Date Kentrell Park MD [address] [place] [phone] PCP - General 07/31/17 Additional Source Comments The information contained in this document represents components of the legal health record. It is not the complete legal health record.[facility]
== END 2025-07-11 11:06 | disposition home or self-care (01) ==
LOC: HO.HMCH 10:17
PROVIDERS: PCP Internal Medicine; Visit Provider Internal Medicine
DX: Z00.00 Encounter for general adult medical examination without abnormal findings (principal); K21.9 Gastro-esophageal reflux disease without esophagitis; R73.02 Impaired glucose tolerance (oral); E78.00 Pure hypercholesterolemia, unspecified; N52.9 Male erectile dysfunction, unspecified

== ENCOUNTER → 2025-07-11 10:16 | Outpatient (BNVA) | payer MEDICARE, SELFPAY | PROVIDERS: PCP Internal Medicine; Visit Provider Internal Medicine | DX: Z00.00 Encounter for general adult medical examination without abnormal findings (principal); K21.9 Gastro-esophageal reflux disease without esophagitis; R73.02 Impaired glucose tolerance (oral); E78.00 Pure hypercholesterolemia, unspecified; N52.9 Male erectile dysfunction, unspecified; I10 Essential (primary) hypertension; E53.8 Deficiency of other specified B group vitamins; K59.00 Constipation, unspecified | CPT/HCPCS: 96127 ==

== ENCOUNTER 2025-08-19 15:15 | Outpatient (AMB) | payer MEDICARE, SELFPAY ==
--- NOTE | 2025-08-19 15:14 | AM.OFFVISNUR ---
Intake Visit Reasons: Flu Shot Allergies No Known Allergies Allergy (Verified 07/11/25 10:23) Office Procedures Flu Questionnaire Does the patient have a severe egg allergy?: No Does the patient have severe life threatening allergies?: No Does the patient have a fever or illness today?: No Has the patient ever had Guillain-Peoa Syndrome?: No Has the patient ever had any past reaction to a flu shot?: No Immunizations Fluarix [id number] (PF) 45 mcg (15 mcg x 3)/0.5 mL IM syringe Performing Provider: Kentrell Park MD [facility] Administered by: Yasmin Mendes LPN on 08/19/25 15:14 Dose Route Admin Location Dispensed Lot Number Expiration Date [facility] Tax Services Specialist 0.5 mL IM Left Deltoid 0.5 mL [id number] 04/14/26 [id number] [employer] VIS Given Date VIS Provided VIS Publication Date 08/19/25 Single Vaccine 24 Eligibility Eligibility Date Funding Source Not [facility] Eligible 08/19/25 Private Assessment & Plan Assessment & Plan Orders: Orders Influenza [id number] Immunization Today Z23 - Encounter for immunization Coding
--- OUTSIDE RECORDS SUMMARY | 2025-08-19 18:07 | XMS_ITS | Clinical Summary ---
Author Organization [facility] Address [address] [place] [address] Phone Care Team Providers Care Systems Specialist Name Role Phone Kentrell Park MD Primary Care Provider [phone] Allergies No known active allergies Medications omeprazole [...] MEDEX SUPPLEMENT MEDICARE PART A & B [employer] MEDEX SUPPLEMENT MEDICARE PART A & B [employer] MEDEX [place] [address] [place] [address] [employer] MED[address] [facility] MEDEX SUPPLEMENT MEDICARE PART A & B [employer] MEDEX SUPPLEMENT MEDICARE PART A & B Member Subscriber Plan / Payer (Ef fective 2017-Present) Name:Carissa Waters Member ID:[id number] Relation to Subscriber:Self Name:Carissa Waters Subscriber ID:[id number] Payer ID:[id number] Group ID:Not on file Type:Medicare Address: [facility] [employer] [facility] [address] [place] [address] [place] [phone] [employer]OSS MEDEX SUPPLEMENT MEDICARE PART A & B [facility] MEDEX SUPPLEMENT MEDICARE PART A & B Care Teams Systems Specialist Relationship Specialty Start Date End Date Kentrell Park MD [address] [place] [phone] PCP - General 07/31/17 Additional Source Comments The information contained in this document represents components of the legal health record. It is not the complete legal health record.[facility]
--- OUTSIDE RECORDS SUMMARY | 2025-08-19 18:07 | XMS_ITS | Patient Health Record ---
Author Organization [facility] Address [address] [place] [address] Care Team Providers Care Radiator Cleaner Name Role Phone Kentrell Park MD Primary Care Provider Jonathan Jerome Jr Unavailable Allergies No Known Allergies Reason For Referral No Information Medications Medication SIG (Take, Route, Fr equency, Duration) Notes Start Date End Date Status Omeprazole 20mg Acti ve MoviPrep 100 GM as directed before c olonoscopy Orally; Duration: 1 dose 07/26/2013 Not-Janusz ing Social History Tobacco Use: Social History Observation [...] Status Risk Notes Problem Colon cancer screening (708807011) Colon cancer screening (V76.51) Active confirmed Problem Colon cancer screening (111071147) Colon cancer screening (Z12.11) Active confirmed Problem Diverticular disease of colon (558036679) Diverticulosis (K57.90) Active confirmed Problem Gastroesophageal reflux disease (981725833) GERD (gastroesophageal reflux disease) (K21.9) Active confirmed Vital Signs Heart Rate 80 /min 05/01/2025 Blood pressure diastolic 01 mm Hg 05/01/2025 Height 69.25 in 05/01/2025 Blood pressure systolic 001 mm Hg 05/01/2025 Weight 177.4 lbs 05/01/2025 BMI 26.01 kg/m2 05/01/2025 Encounters Encounter Location Date Provider Diagnosis [facility] [address] [place] [address] 05/01/2025 Jonathan Prakash Jr GERD (gastroesophageal reflux [...] Coverage End Date MEDICARE OF [place] [address] [place] [address] [phone] [id number] CARISSA WATERS Self - patient is the insured MEDEX ATTN CLAIMS [address] [place] [address] [phone] [id number] CARISSA WATERS Self - patient is the insured Medical (General) History Medical History History ICD Code Gastroesophageal reflux disease High blood pressure without a diagnosis of hypertension Hyperlipidemia Skin cancer Vitamin D deficiency Surgical History Surgery Date(Month/Year) Repair of detached retina 2010 Hospitalization History Reason Date(Month/Year) had the flu in August 2024
== END 2025-08-19 15:15 | disposition home or self-care (01) ==
LOC: HO.HMCH 15:15
PROVIDERS: PCP Internal Medicine
DX: Z23 Encounter for immunization (principal)

== ENCOUNTER → 2025-08-19 15:15 | Outpatient (BNVA) | payer MEDICARE, SELFPAY | PROVIDERS: PCP Internal Medicine | DX: Z23 Encounter for immunization (principal) | CPT/HCPCS: 90471; 90656 ==